=== PATIENT | female | born 1950 | race Caucasian/White ===

== ENCOUNTER 2021-08-19 17:23 | Inpatient (IN) | payer MEDICARE, BC ==
[~2021-08-19] VITALS: Ht 167.6 cm; Wt 64.4 kg
[~2021-08-19 17:23] MED LIST: AMLO10TA4 PO; ESTR1TAB28 PO; FERR325T28 PO; FURO40TA5 PO; LEVO150T PO
--- NOTE | 2021-08-19 17:35 | NUR ---
STEPHANIE CLEMONS (BOYFRIEND) [phone]
--- NOTE | 2021-08-19 17:40 | NUR ---
[facility] 71[facility]ited pt awke and alert fallow skin warm and dry to touch
[2021-08-19] MEDS ORDERED: IV NS 0.9% 1,000 ML BAG IV ONE (18:00)
--- NOTE | 2021-08-19 18:00 | NUR ---
COVID ANTIGEN SWAB DONE AND SENT TO THE LAB
[2021-08-19 18:02] LABS: BASOPHILS % (AUTO) 0.1 % (0.0-2.0); EOSINOPHILS % (AUTO) 1.6 % (0.0-6.0); HEMATOCRIT 33 % (33-45); HEMOGLOBIN 10.6 g/dL (11.5-14.8); LYMPHOCYTES # (AUTO) 0.8 K/uL (0.8-4.8); LYMPHOCYTES % (AUTO) 6.5 % (20.0-44.0); MEAN CORPUSCULAR HGB CONC 32 g/dl (31.0-36.0); MEAN CORPUSCULAR VOLUME 93 fL (82-100); MONOCYTES # (AUTO) 0.6 K/uL (0.1-1.30); MONOCYTES % (AUTO) 4.8 % (2.0-12.0); NEUTROPHILS # (AUTO) 10.6 K/uL (1.8-8.9); PLATELET COUNT (AUTO) 481 K/uL (150-450); RED BLOOD CELL COUNT(AUTO) 3.51 MIL/uL (4.0-5.2); WHITE BLOOD COUNT (AUTO) 12.2 K/uL (4.3-11.0)
[2021-08-19] MEDS ORDERED: LISI10TA29 PO (18:10)
[2021-08-19] MEDS ORDERED: LEVO200T8 PO (18:10)
--- NOTE | 2021-08-19 18:10 | NUR ---
MOVE SHEET SUBMITTED AND CALLED FOR TELE BED.
[2021-08-19] MEDS ORDERED: GABA300C PO (18:13)
--- NOTE | 2021-08-19 18:28 | NUR ---
ivf infused and patent HOB elevated no pain vs stable
[2021-08-19 18:43] LABS: CARBON DIOXIDE 26 mmol/L (21-32); CHLORIDE 101 mmol/L (98-107); GLUCOSE 194 mg/dL (74-106); SODIUM SERUM 139 mmol/L (136-145); UREA NITROGEN, BLOOD 7 mg/dL (7-18)
[2021-08-19 18:47] LABS: CALCIUM, SERUM 8.9 mg/dL (8.5-10.1)
[2021-08-19 18:52] LABS: POTASSIUM 2.2 mmol/L (3.5-5.1)
--- NOTE | 2021-08-19 19:23 | NUR ---
HAND OFF DAVE RN
[2021-08-19] MEDS ORDERED: ASPIRIN 81 MG TAB.CHEW PO ONE (19:30)
[2021-08-19] MEDS: POTASSIUM CL. PREMIX PERIPHER. 50 ML IV SCH ×2 (19:30→20:43)
[2021-08-19] MEDS ORDERED: POTASSIUM CHLORIDE 20 MEQ TAB.PRT.SR PO ONE ×2 (19:30→20:32)
--- NOTE | 2021-08-19 19:49 | NUR ---
URINE COLLECTED AND SENT TO LAB
[2021-08-19] MEDS ORDERED: Z GUARD REMEDY 4 OZ OINT TP PRN (20:00)
[2021-08-19] MEDS ORDERED: MORPHINE SULFATE INJ 2 MG/ML DISP.SYRIN IV PRN (20:00)
[2021-08-19] MEDS ORDERED: IV NS 0.9% 1,000 ML IV PRN (20:00)
[2021-08-19] MEDS ORDERED: ACETAMINOPHEN 325 MG TABLET PO PRN (20:00)
[2021-08-19] MEDS ORDERED: ONDANSETRON HCL/PF 4 MG/2 ML VIAL IVP PRN (20:00)
[2021-08-19] MEDS ORDERED: MAG HYDROX/AL HYDROX/SIMETH 30 ML UDC PO PRN (20:00)
[2021-08-19] MEDS ORDERED: MAGNESIUM HYDROXIDE 30 ML UDC PO PRN (20:00)
[2021-08-19] MEDS ORDERED: HYDROCODONE/APAP 5/325MG TABLET PO PRN (20:00)
[2021-08-19 20:05] LABS: BILIRUBIN,URINE NEGATIVE (NEGATIVE); COLOR,URINE YELLOW (YELLOW); LEUKOCYTE ESTERASE ,URINE LARGE (NEGATIVE); NITRITE, URINE NEGATIVE (NEGATIVE); PH,URINE 6.5 (5.0-8.0); PROTEIN,URINE 30 mg/dl (NEGATIVE); UGLUCOSE NEGATIVE (NEGATIVE); UROBILINOGEN,URINE 0.2 EU/dL (0.2)
[2021-08-19 20:12] LABS: BACTERIA,URINE 3+ /HPF (None Seen); WBC,URINE 81-100 /HPF (0-3)
[2021-08-19] MEDS ORDERED: CEFTRIAXONE 1 G in IV D5W 50 ML IV STA (20:25)
[2021-08-19] MEDS ORDERED: CEFTRIAXONE 1GM BAG (ER ONLY) 50 ML IV ONE (20:31)
[2021-08-19] MEDS ORDERED: ASPIRIN 81 MG TAB.CHEW ONE (20:32)
[2021-08-19] MEDS ORDERED: POTASSIUM CL. PREMIX PERIPHER. 100 ML ONE (20:32)
--- NOTE | 2021-08-19 20:39 | NUR ---
REPORT GIVEN TO ELIZABETH MCGINNIS
--- NOTE | 2021-08-19 21:09 | NUR ---
TRPONIN REPORTED AT 193
--- NOTE | 2021-08-19 21:30 | NUR ---
PT TRANSFERRED UNDER ACLS
[2021-08-19] MEDS: ENOXAPARIN SODIUM 40 MG/0.4 ML DISP.SYRIN SQ SCH (21:48)
[2021-08-19] MEDS: Magnesium 1GM/D5W 100ML PREMIX 100 ML IV SCH ×2 (21:50→22:50)
[2021-08-19] MEDS: TEMAZEPAM 15 MG CAPSULE PO PRN (22:10)
--- NOTE | 2021-08-19 22:10 | NUR ---
RN NOTE RECEIVED A 71 YEAR OLD FEMALE FROM ER AT 2140. PATIENT WAS ACCOMPANIED BY MAINTENANCE PERSON AND RN, DAVE. PATIENT AMBULATED FROM GURNEY TO BED. PATIENT IS ALERT AND ORIENTED X4. ABLE TO MAKE NEEDS KNOWN. BREATHING EVEN AND UNLABORED. TOLERATING ROOM AIR WELL. DENIES FEELING SHORTNESS OF BREATH. ON TELE MONITORING. DENIES CHEST PAIN. SKIN WARM AND DRY. NOTED WITH LEFT UPPER CHEST PACEMAKER. RIGHT AC 20G, PERIPHERAL IV, NO INFILTRATION WAS INFUSING POTASSIUM. REFUSED UPPER BODY SKIN ASSESSMENT AT THIS TIME. LOWER LEG ASSESSMENT DONE, PHOTOS FILED IN CHART. REFUSED BLOOD PRESSURE AT THIS TIME. EXPLAINED THE PURPOSE 3X, REFUSED CUFF INFLATION WAS PAINFUL ON LEFT ARM. ABLE TO ACTIVELY MOVE LEFT ARM WITH NO PAIN. WILL ATTEMPT AT LATER TIME. NO BLEEDING AT THIS TIME. BED LOW, IN LOCKED POSITION, CALL LIGHT WITHIN REACH.
[2021-08-20] VITALS: BP 122/49
[2021-08-20 04:00] VITALS: BP 107/72
--- NOTE | 2021-08-20 06:26 | NUR ---
RN NOTE NO SIGNIFICANT CHANGES. PATIENT SLEPT WELL. ALL DUE MEDICATIONS GIVEN. DENIES CHEST PAIN. DENIES FEELINGS OF SYNCOPE. BEDREST. VERBALIZES ABILITY TO CONTROL BOTH BOWEL AND BLADDER. DENIES NEEDING TO USE THE RESTROOM SINCE ADMISSION. IV 20G ON RIGHT AC INTACT, NO INFILTRATION, CURRENTLY INFUSING NS AT 75 CC/HR. ALL NEEDS ATTENDED, BED LOW, IN LOCKED POSITION, CALL LIGHT WITHIN REACH.
[2021-08-20 07:18] LABS: BASOPHILS % (AUTO) 0.5 % (0.0-2.0); EOSINOPHILS % (AUTO) 1.9 % (0.0-6.0); HEMATOCRIT 25 % (33-45); HEMOGLOBIN 8.5 g/dL (11.5-14.8); LYMPHOCYTES # (AUTO) 2.1 K/uL (0.8-4.8); LYMPHOCYTES % (AUTO) 24.7 % (20.0-44.0); MEAN CORPUSCULAR HGB CONC 34 g/dl (31.0-36.0); MEAN CORPUSCULAR VOLUME 93 fL (82-100); MONOCYTES # (AUTO) 1.5 K/uL (0.1-1.30); MONOCYTES % (AUTO) 18.1 % (2.0-12.0); NEUTROPHILS # (AUTO) 4.7 K/uL (1.8-8.9); NEUTROPHILS % (AUTO) 54.8 % (43.0-81.0); PLATELET COUNT (AUTO) 346 K/uL (150-450); RED BLOOD CELL COUNT(AUTO) 2.73 MIL/uL (4.0-5.2); WHITE BLOOD COUNT (AUTO) 8.6 K/uL (4.3-11.0)
--- NOTE | 2021-08-20 07:30 | NUR ---
RN OPENING NOTE RECEIVED PATIENT IN BED AWAKE, ALERT/ORIENTEDX4 AND VERBALLY RESPONSIVE. ON ROOM AIR TOLERATING WELL WITH SATURATION OF 95%. BREATHING EVEN AND UNLABORED. NO SOB OR ANY ACUTE DISTRESS NOTED AT THE TIME. NOTED WITH LEFT UPPER CHEST PACEMAKER. RIGHT AC 20G, INFUSING NS @75ML/HR, TOLERATING WELL. NO SIGNS OF INFILTRATION NOTED ON SITE. ALL SAFETY MEASURES IMPLEMENTED. BED LOCKED AND IN LOWEST POSITION WITH SIDE RAILS UP X 2 AND CALL LIGHT WITHIN REACH. WILL CONTINUE TO MONITOR PATIENT ACCORDINGLY THROUGHOUT SHIFT.
[2021-08-20 07:51] LABS: CALCIUM, SERUM 8.2 mg/dL (8.5-10.1); CARBON DIOXIDE 25 mmol/L (21-32); CHLORIDE 106 mmol/L (98-107); CREATININE 0.8 mg/dL (0.6-1.3); GLUCOSE 96 mg/dL (74-106); MAGNESIUM 2.1 mg/dL (1.8-2.4); PHOSPHORUS 3.5 mg/dL (2.5-4.9); SODIUM SERUM 140 mmol/L (136-145); UREA NITROGEN, BLOOD 8 mg/dL (7-18)
[2021-08-20 08:00] VITALS: BP 129/67
[2021-08-20 08:02] LABS: POTASSIUM 1.8 mmol/L (3.5-5.1)
--- NOTE | 2021-08-20 08:09 | NUR ---
k level is 1.8 was notified and orders obtained
[2021-08-20 08:19] LABS: THYROID STIMULATING HORMONE < 0.007 uIU/mL (0.358-3.74)
[2021-08-20] MEDS: PANTOPRAZOLE 40 MG TABLET.DR PO SCH (08:25)
[2021-08-20] MEDS: ASPIRIN 81 MG TAB.CHEW PO SCH (08:25)
[2021-08-20] MEDS ORDERED: POTASSIUM CHLORIDE 20 MEQ TAB.PRT.SR PO ONE (09:00)
[2021-08-20] MEDS: POTASSIUM CL. PREMIX PERIPHER. 50 ML IV SCH ×6 (09:25→14:29)
[2021-08-20 12:00] VITALS: BP 119/96
[2021-08-20] MEDS ORDERED: Potassium Chloride 20 MEQ in IV NS 0.9% 1,000 ML IV ONE (12:00)
[2021-08-20 12:19] LABS: EOSINOPHILS % (MANUAL) 1 % (0-4); LYMPHOCYTES % (MANUAL) 28 % (16-48); MONOCYTES % (MANUAL) 12 % (0-11.0); NEUTROPHILS % (MANUAL) 59 (42-76)
[2021-08-20 16:00] VITALS: BP 98/63
[2021-08-20] MEDS: MUPIROCIN OINT 2% 22 GM TUBE NS SCH ×2 (17:35→21:38)
--- NOTE | 2021-08-20 18:45 | NUR ---
RN CLOSING NOTE NO SIGNIFICANT CHANGES ON PATIENT THROUGHOUT SHIFT. PATIENT IN BED AWAKE, ALERT/ORIENTEDX4 AND VERBALLY RESPONSIVE, WITH FAMILY AT BEDSIDE. ON ROOM AIR TOLERATING WELL WITH SATURATION OF 100%. BREATHING EVEN AND UNLABORED. NO SOB OR ANY ACUTE DISTRESS NOTED AT THE TIME. RIGHT AC 20G, INFUSING KCL @75ML/HR, TOLERATING WELL. NO SIGNS OF INFILTRATION NOTED ON SITE. ALL DUE MEDS GIVEN ORDERED. KEPT PATIENT CLEAN DRY AND COMFORTABLE. ALL NEEDS ATTENDED. ALL SAFETY MEASURES IMPLEMENTED. BED LOCKED AND IN LOWEST POSITION WITH SIDE RAILS UP X 2 AND CALL LIGHT WITHIN REACH. WILL ENDORSE TO ONCOMING NURSE FOR CONTINUITY OF CARE.
[2021-08-20 19:06] LABS: CALCIUM, SERUM 8.1 mg/dL (8.5-10.1); CREATININE 0.9 mg/dL (0.6-1.3); POTASSIUM 3.1 mmol/L (3.5-5.1)
--- NOTE | 2021-08-20 19:10 | NUR ---
RN NOTES RECEIVED REPORT FROM MORNING RN PATIENT IN BED A/O X3-4 ABLE TO MAKE NEEDS KNOWN NO SOB NO DISTRESS NO CHEST PAIN NOTED AT THIS TIME, @ BEDSIDE. WITH IV ACCESS AT R AC # 20 PATENT FLUSHES WELL. WITH ONGOING IVF KCL@75CC/HR TOLERATING WELL. ALL SAFETY MEASURES IN PLACE AT ALL TIMES. HOB ELEVATED. CALL LIGHT WITHIN REACH. BED ON LOWEST POSITION AND LOCKED. WILL CLOSELY MONITOR THE PATIENT
[2021-08-20 20:00] VITALS: BP 118/76
[2021-08-20] MEDS: ENOXAPARIN SODIUM 40 MG/0.4 ML DISP.SYRIN SQ SCH (21:37)
[2021-08-20] MEDS: TEMAZEPAM 15 MG CAPSULE PO PRN (21:42)
[2021-08-21] VITALS: BP 104/52
[2021-08-21 04:00] VITALS: BP 137/60
--- NOTE | 2021-08-21 06:52 | NUR ---
RN NOTES NO SIGNIFICANT CHANGES ON PATIENT THROUGHOUT SHIFT. PATIENT IN BED AWAKE, ALERT/ORIENTEDX4 AND VERBALLY RESPONSIVE, ON ROOM AIR TOLERATING WELL WITH SATURATION OF 100%. BREATHING EVEN AND UNLABORED. NO SOB OR ANY ACUTE DISTRESS NOTED AT THE TIME. RIGHT AC 20G PATENT FLUSHES WELL NO SIGNS OF INFILTRATION NOTED ON SITE. ALL DUE MEDS GIVEN ORDERED. KEPT PATIENT CLEAN DRY AND COMFORTABLE. ALL NEEDS ATTENDED. ALL SAFETY MEASURES IMPLEMENTED. BED LOCKED AND IN LOWEST POSITION WITH SIDE RAILS UP X 2 AND CALL LIGHT WITHIN REACH. WILL ENDORSE TO ONCOMING NURSE FOR CONTINUITY OF CARE.
[2021-08-21 07:39] LABS: BASOPHILS % (AUTO) 0.6 % (0.0-2.0); HEMATOCRIT 25 % (33-45); LYMPHOCYTES # (AUTO) 1.7 K/uL (0.8-4.8); LYMPHOCYTES % (AUTO) 22.5 % (20.0-44.0); MEAN CORPUSCULAR HGB CONC 32 g/dl (31.0-36.0); MEAN CORPUSCULAR VOLUME 95 fL (82-100); MONOCYTES # (AUTO) 1.2 K/uL (0.1-1.30); NEUTROPHILS # (AUTO) 4.6 K/uL (1.8-8.9); NEUTROPHILS % (AUTO) 58.9 % (43.0-81.0); PLATELET COUNT (AUTO) 328 K/uL (150-450); RED BLOOD CELL COUNT(AUTO) 2.65 MIL/uL (4.0-5.2); WHITE BLOOD COUNT (AUTO) 7.7 K/uL (4.3-11.0)
[2021-08-21] MEDS: PANTOPRAZOLE 40 MG TABLET.DR PO SCH (07:48)
[2021-08-21 08:00] VITALS: BP 144/82
[2021-08-21 08:32] LABS: CALCIUM, SERUM 8.1 mg/dL (8.5-10.1); CREATININE 0.7 mg/dL (0.6-1.3); MAGNESIUM 1.8 mg/dL (1.8-2.4); PHOSPHORUS 2.9 mg/dL (2.5-4.9)
[2021-08-21 08:35] LABS: POTASSIUM 2.6 mmol/L (3.5-5.1)
--- NOTE | 2021-08-21 08:56 | NUR ---
RN NOTES: LAB CALLED AND REPORTED POTASSIUN 2.6, CALL Sherman Ramon WITH ORDER OF kcl 60 mEq PO X 1,
[2021-08-21] MEDS: ASPIRIN 81 MG TAB.CHEW PO SCH (09:36)
[2021-08-21] MEDS: MUPIROCIN OINT 2% 22 GM TUBE NS SCH ×2 (09:37→21:36)
[2021-08-21] MEDS ORDERED: POTASSIUM CHLORIDE 20 MEQ TAB.PRT.SR PO ONE (10:00)
--- NOTE | 2021-08-21 10:49 | NUR ---
RN NOTESl: NOTED PT IS HAVING DIFFICULTY SWALLOWING BRAXTON CAKE ASKED IF SHE IS OK CAN NOT ANSWER, ASKED IF SHE IS CHOCKING MOVED HER HEAD YES, DOES NOT NEED HELP AT THIS TIME, WAS ABLE TO DRINK WATER, REMOVED BREAKFAST TRAY CALLED MD WITH ORDER OF SWALLOW EVAL, CHANGE DIET TO PUREE DIET.;
[2021-08-21] MEDS: Potassium Chloride 40 MEQ in IV NS 0.9% 1,000 ML IV SCH (11:32)
--- NOTE | 2021-08-21 11:38 | NUR ---
WOUND CARE CONSULT: PT AGREED TO HAVE SKIN ASSESSMENT BUT BECAME AGITATED DURING ASSESSMENT AND WAS VERY IRRITABLE. PT NOTED TO HAVE SPOTTY RASH TO TRUNK OF BODY, UNKNOWN ETIOLOGY. DEFER TO PMD FOR RASH. PT ALSO NOTED TO HAVE DRY ESCHARS/SCABS TO LEFT LOWER LEG AND ANKLE AREA WELL VERY LONG, CURLING TOENAILS. DPM CONSULT CALLED TO DR DORANTES. PT IS INCONTINENT OF LOOSE STOOL. RECOMMENDATIONS MADE FOR SKIN PROTECTION. DISCUSSED WITH NURSING STAFF. MD IN AGREEMENT WITH PLAN OF CARE.
[2021-08-21 12:00] VITALS: BP 143/70
[2021-08-21] MEDS: METHIMAZOLE (5MG) 5 MG TABLET PO SCH (15:14)
[2021-08-21 16:00] VITALS: BP 140/90
--- NOTE | 2021-08-21 16:13 | NUR ---
SS Note: SS received consult for extremely long, curling toenails, and dry wounds on leg. Pt. Is a 71-year-old female who demonstrates adequate insight to the reason for hospitalization. Per pt., she presents to the hospital for a syncopal event. Pt. was oriented x3, alert, and cooperative. During interview, pt. was capable of following directions and appeared unkempt. Pt.s speech was at a normal rate and pt.s mood was elevated. Pt. reported no hx of mental health, substance abuse, suicidal ideation, or homicidal ideation. Pt. denies auditory hallucinations, visual hallucinations, paranoia, or delusions. SW explored pt.s living situation. Per pt., she resides at her place with her friend [Javan Christianson and his son]. Pt. stated that Javan is helpful as needed. Pt. stated that she can take care of herself, but her fingernails are long and yellow. SW asked pt. regarding fall in bathtub. Per pt., she was showering and fell backwards because it was slippery. Her friend Javan helped her up since he was right beside her. Pt. stated that she was fine but per wound consult, pt. noted to have spotty rash to trunk of body. Pt. also noted that to have dry eschars/scabs to left lower leg and ankle area. Plan: SW made an APS report due to self-neglect. APS Intake #[id number] Resources Provided: ABUSE PREVENTION: ELDER ABUSE HOTLINE (08/11) ADULT PROTECTIVE SERVICES HOTLINE LONG-TERM CARE [facility] Region AREA ON AGING (HOTLINE) ADULT DAY HEALTH CARE CARE CENTERS: Private pay or Medi-moreno funded adult day care [place] Adult [facility] Care [facility] , [facility] , [facility] , [facility] Adult [facility] Health Care , [facility] Adult [facility] Health Care , [facility] Adult Daycare Center , [place] [facility] , [place] [facility] Adult Center , [place] ALZHEIMERS DISEASE/DEMENTIA: Alzheimers Association Helpline [facility] www.alz.org/[facility] Department of Aging www.lacity.org Family Caregiver Dora www.caregiver.org [place] Caregiver Resources Center/Family Support www.[facility].org CANCER RESOURCES: [place] Cancer Society www.cancer.org Cancer Support Community www.CancerSupportVvsb.org: CancerCare www.cancercare.org [facility] Cancer Support [place] www.[facility].org [facility] HEALTH ASSOCIATIONS: AARP www.aarp.org ALS Association (ask for Jelly) www.als.org [place] Diabetes Association www.diabetes.org [place] Heart Association www.heart.org [place] Lung Association www.lungusa.org [place] Parkinson Disease Association www.apdaparkinson.org [place] , www.redcross.org Arthritis Foundation www.arthritis.org Crohns & Colitis Foundation of [place] www.ccfa.org/chapters/deborah National Multiple Sclerosis Society www.nationalmssociety.org Myasthenia Gravis Foundation www.myasthenia-ca.org National Stroke Association www.stroke.org CONSERVATORSHIP & GUARDIANSHIP: AARP Lety Solitario Legal Services Center for Health Care Rights Eldercare Information and Referral Collection Clerk Foundation [facility] Hospital: [facility] Hospital Bar Referral Service [facility] Legal Services Office of the Public Guardian [place] EYESIGHT DISORDER RESOURCES: [place] Macular Degeneration Foundation [facility] www.[facility].org GRIEF AND BEREAVEMENT RESOURCES: The [place] , [facility] THE MILNER Connection , [facility] Bereavement Center , [place] HEARING DISORDER RESOURCES: [place] Telephone Access Program Deaf and Disabled Telecommunications Program www.ddtp.[facility].ca.gov HearRx Hearing Centers ([place]) Better Hearing Systems , [place] GLAD ([facility] Agency on Deafness) V/ TTY; Flight Follower , [facility] Hearing [facility] -low income hearing aid assistance www.university of miami hospitalfoundation.org [place] [facility] , [place] HELP AT HOME CAREGIVER SUPPORT: In Home Support Services (Must have Medi-Moreno to be eligible) *Ask for a list of agencies that provide services to assist with care in the home. Local Senior Centers also have listings of care providers. HOME SAFETY MODIFICATIONS AND EQUIPMENT: Senior centers have additional referrals. [place] Housing and Community Investment Dept. Handyworker Program (low income) or Visit http://hcidla.[facility].org/yca-qskiha-te for more information National Seating and Mobility and/or ; Forever Active www.foreveractivemed.SKKY, Inc. Stay Home Safe www.Stayhomesafe.SKKY, Inc. LIFE ALERT RESPONSE SYSTEM: iGo Lifeline Services 410-968-7855 www. LawbitDocs Life Alert 536-308-1544 www.Vibrant Energy.SKKY, Inc. Life Station 185-760-4796 www.BoomBangation.SKKY, Inc. Safe Return 369-817-2979 www.alz.or/safereturn Cell Phones for Seniors www.HotPads MEALS AND FOOD PROGRAMS: Blank Meals on Wheels [phone] [place] Meals on Wheels [phone] [facility] [phone] [place] to the Homebound [phone] [place] to the Homebound [phone] [facility] to the Homebound [phone] [facility] to the Homebound [phone] [facility] [phone] [facility] [phone] ONE Generation [phone] [facility] [phone] [facility] [phone] Meals on Wheels [phone] For all ages: $6.85/ meal w side. Delivered M-F from 10 am-1pm. Application and payment is done over the phone. Frozen meals available for weekends. Emergency Food [facility] [phone] [facility] Bodybuilder [phone] [facility] [phone] [facility]- Brown bag lunches [phone] [facility] [phone] MEAL/GROCERY DELIVERY PROGRAMS: Chris Senior Gourmet Meals [phone]- [facility] [phone]- [facility] Magic Kitchen [phone] Moms Meals [phone] (ask [place] for Discount Select grocery stores may provide delivery. MEDICAL INSURANCE SUPPORT SERVICES: Center for Health Care Rights [phone] Health Insurance Counseling/Advocacy Programs (HICAP)-Must have Medicare. Offers counseling for Medi-Moreno eligibility [phone] Department of Public Bodybuilder [phone] www.[facility].ca.gov Medicare 401-995-6647 www.socialsecurity.org Social Security [phone] SENIOR ACTIVITY PROGRAMS: *Contact a local senior center, adult school, recreation facility or community [facility] for education, fitness, recreation, and social programs. Aquatic Therapy and Adapted Exercise programs through [facility] [phone] Encore at [facility] [phone] www.[facility]/encore U- Senior Friends [phone] [place] Senior Programs 110-643-7301 www.oasisnet.org Suddenly 65 www.Human Demand.SKKY, Inc. SENIOR CENTERS: [facility] [phone] [facility] [phone] [facility] [phone] [facility] [phone] [facility] [phone] [facility] [phone] [facility] [phone] [facility] [phone] [facility] [phone] [facility] [phone] [facility] [phone] [facility] [phone] [facility] [phone] TRANSPORTATION: Local [facility] may have applications for transportation programs and additional resources. ACCESS Services [phone] Transportation for seniors and disabled persons 7 days a week requiring 254 hr. advance reservation. Must apply and register for program melissa eligible. CITY RIDE 430-826-0717 or [phone] Transportation for seniors and persons with ADA card/metro disabled card in the [facility]. M-F only. Must register for services. ONE GENERATION [phone] Serves 65 years + in conjunction with city ride program. Must be registered with both programs. A to B Transport [phone] Provides wheelchair/gurney van service. Adult Medical Transport [phone] Accepts [facility] with prior authorization. Care Van [phone] Provides wheelchair Transport. [facility] Wide Transportation [phone] Provides gurney service Gentle Care [phone] Gurney Transport. All Town Transportation [phone] wheelchair & gurney transport D Transportation [phone] wheelchair & gurney transport [place] Non-Emergency Transport [phone] wheelchair & gurney transport Independent Living Center [phone] Short Term Transportation primarily for adults with disabilities on social security income. Nominal fee may apply and a reservation is required. [facility] Cab [phone] or [phone] [place] TappTimei [phone] [place] [address] Services -[phone] For additional programs & services VETERANS RESOURCES: Submissions for Aid and Attendance should be done directly to Federal VA office locatd at : [address] [facility] [phone] National Caregiver Support Line [phone] [place] Field Office [phone] [place] Department of Affairs [phone] Pension Information [phone]
--- NOTE | 2021-08-21 18:00 | NUR ---
RN NOTES: PT PULLED HER IV FLUID SAYING I DO NOT WANT IT EXPLAINED RISK AND BENEFITS STILL REFUSING TO INSERT A NEW LINE, CALL JUAN PABLO BEE AND NOTIFIED HIM
--- NOTE | 2021-08-21 19:37 | NUR ---
RN NOTES: PT IN BED AWAKE ALERT X 3 , RESPIRATION IS EVEN AND UNLABORED ON ROOM AIR, DENIED ANY PAIN OR DISCOMFORT,KEPT CLEAN AND DRY, ALL DUE MEDS ARE GIVEN ORDERED, CALL LIGHT WITHIN REACH AT ALL TIMES, BED KEPT IN LOW AND LOCKED POSITION, ENDORSE TO MARYLU JACQUES RN FOR CONTINUITY OF CARE
--- NOTE | 2021-08-21 20:00 | NUR ---
RECEIVED PATIENT IN BED, ALERT/ORIENTED X3, ROOM AIR, NO COMPLAIN OF PAIN, VERY ANXIOUS, EXCITABLE, REFUSING TO HAVE IV LINE , EXPLAINED TO PATIENT POTASSIUM LEVEL IS LOW, NEEDS TO BE REPLACED VIA IV. AGREED FOR PERIPHERAL IV. GENERALIZED WEAKNESS, BEDREST, INCONTINENT OF URINE, KEPT SAFE, WILL CONTINUE TO MONITOR.
[2021-08-21 20:50] VITALS: BP 171/84
[2021-08-21] MEDS: LORAZEPAM INJ 2 MG/ML VIAL IV PRN (21:27)
[2021-08-21] MEDS: CEPHALEXIN MONOHYDRATE 500 MG CAPSULE PO SCH (21:27)
[2021-08-21] MEDS: ENOXAPARIN SODIUM 40 MG/0.4 ML DISP.SYRIN SQ SCH (21:28)
[2021-08-22] VITALS (8 sets, daily range): BP systolic 146–197; BP diastolic 65–94
--- NOTE | 2021-08-22 01:01 | NUR ---
BP 181/73, HR 83, NOTIFIED RISK MODELER LENIN, NO NEW ORDER.
[2021-08-22] MEDS: Potassium Chloride 40 MEQ in IV NS 0.9% 1,000 ML IV SCH ×2 (01:14→14:18)
--- NOTE | 2021-08-22 05:45 | NUR ---
REPORTED TO ROMEO PHELPS, BP 160/87, NO NEW ORDER
--- NOTE | 2021-08-22 06:33 | NUR ---
SYNCOPE AND HYPOKALEMIA, ALERT/ORIENTED X3, VERY ANXIOUS, STABLE ON ROOM AIR, POTASSIUM 2.6 REPLACED BY KDUR 60 MEQ 08/21/21, ON NS + KCL 40 MEQ AT 75 ML/HR, BMP, CBC IN AM, UA POSITIVE ECOLI, NEW ORDER OF KEFLEX PO. ASPIRATION PRECAUTION, CRUSHED MEDS WITH APPLE SAUCE, PUREED DIET.
--- NOTE | 2021-08-22 07:30 | NUR ---
ENGINE INSPECTOR AM NOTES: PT IN BED AWAKE ALERT X 3 , ON 2L O2 NASAL CANULA O2 SAT 97%, PT REMOVES CANULA. PREFERS ROOM AIR AT THIS TIME. NO SOB, NO DISTRESS, RESPIRATION UNLABORED. SR, PAC, PVC HR 85 ON MONITOR. DENIES PAIN AT THIS TIME. NS + KCL 40 MEQS INFUSING AT 75 ML/HR ON LEFT HAND G24, SITE CLEAR. BEDREST, SEE NURSING FLOWSHEET FOR SKIN ISSUES. ON DIAPERS, POC DISCUSSE, VERBALIZED UNDERSTANDING. BED LOW LOCKED, SAFETY MEASURES IN PLACE, SR UP X2, CALL LIGHT WITHIN REACH. WILL CONT TO MONITOR.
[2021-08-22] MEDS: PANTOPRAZOLE 40 MG TABLET.DR PO SCH (07:57)
[2021-08-22] MEDS: ASPIRIN 81 MG TAB.CHEW PO SCH (08:16)
[2021-08-22] MEDS: CEPHALEXIN MONOHYDRATE 500 MG CAPSULE PO SCH ×2 (08:16→21:17)
[2021-08-22] MEDS: METHIMAZOLE (5MG) 5 MG TABLET PO SCH (08:16)
[2021-08-22] MEDS: MUPIROCIN OINT 2% 22 GM TUBE NS SCH ×2 (08:17→21:24)
--- NOTE | 2021-08-22 09:30 | NUR ---
RN NOTE DUE MEDS GIVEN
--- NOTE | 2021-08-22 09:41 | NUR ---
RN NOTES DR. ARLETTE ALMEIDA NOTIFIED OF BP 175/94 AND THAT PT HAS NO BP MEDS. MEDICATION NEEDS TO BE RECONCILED.
[2021-08-22 10:58] LABS: BASOPHILS % (AUTO) 0.6 % (0.0-2.0); EOSINOPHILS % (AUTO) 3.3 % (0.0-6.0); HEMATOCRIT 26 % (33-45); HEMOGLOBIN 8.1 g/dL (11.5-14.8); LYMPHOCYTES # (AUTO) 1.3 K/uL (0.8-4.8); LYMPHOCYTES % (AUTO) 17.7 % (20.0-44.0); MEAN CORPUSCULAR HGB CONC 32 g/dl (31.0-36.0); MEAN CORPUSCULAR VOLUME 96 fL (82-100); MONOCYTES # (AUTO) 0.9 K/uL (0.1-1.30); MONOCYTES % (AUTO) 12.1 % (2.0-12.0); NEUTROPHILS # (AUTO) 4.9 K/uL (1.8-8.9); NEUTROPHILS % (AUTO) 66.3 % (43.0-81.0); PLATELET COUNT (AUTO) 345 K/uL (150-450); RED BLOOD CELL COUNT(AUTO) 2.66 MIL/uL (4.0-5.2); WHITE BLOOD COUNT (AUTO) 7.4 K/uL (4.3-11.0)
[2021-08-22 11:05] LABS: CALCIUM, SERUM 7.9 mg/dL (8.5-10.1); CREATININE 0.7 mg/dL (0.6-1.3); MAGNESIUM 1.5 mg/dL (1.8-2.4); PHOSPHORUS 2.9 mg/dL (2.5-4.9); POTASSIUM 3.8 mmol/L (3.5-5.1)
--- NOTE | 2021-08-22 11:16 | NUR ---
RN NOTES CALL PLACED AGAIN TO DR. ARLETTE ALMEIDA RE PT'S BP 175/94. MEDICATION NEEDS RECONCILIATION. NO BP MEDICATION
--- NOTE | 2021-08-22 11:45 | NUR ---
RN NOTES PICC/MIDLINE NURSE AT BEDSIDE. MIDLINE INSERTION
--- NOTE | 2021-08-22 11:50 | NUR ---
RN NOTES ATTEMPTED TO GIVE PATIENT A ONE TIME NORVASC 5 MG BUT PATIENT BECAME CRANKY AND UPSET AND THREW A FIT. EXPLAINED TO HER THAT IT IS ONLY A ONE TIME MEDICATION, AND PER HER, SHE DOES NOT WANT TO BE DISTURBED WHILE EATING.
[2021-08-22] MEDS: AMLODIPINE BESYLATE 5 MG TABLET PO ONE ×2 (11:56→12:08)
--- NOTE | 2021-08-22 16:45 | NUR ---
RN NOTES PLACE A CALL TO DR. ARLETTE ALMEIDA RE PT'S BP 197/94. PT HAS NO BP MEDICATION
--- NOTE | 2021-08-22 17:00 | NUR ---
RN NOTES PATIENT STARTED ON NORVASC 10 MG DAILY. ATIVAN 0.5MG IV GIVEN FOR ANXIETY BP RECHECKED 146/86
[2021-08-22] MEDS: LORAZEPAM INJ 2 MG/ML VIAL IV PRN (17:06)
[2021-08-22] MEDS: AMLODIPINE BESYLATE 10 MG TABLET PO SCH (17:06)
[2021-08-22] MEDS ORDERED: CEPHALEXIN MONOHYDRATE 250 MG CAPSULE PO SCH (18:00)
--- NOTE | 2021-08-22 18:41 | NUR ---
RN CLOSING NOTES PATIENT RESTING COMFORTABLY, NOT IN ANY DISTRESS. ALL NEEDS MET AT THIS TIME. PM CARE DONE EARLIER. NO OTHER SIGNIFICANT CHANGE IN CONDITION. WILL ENDORSE TO NEXT SHIFT FOR SINA.
--- NOTE | 2021-08-22 19:45 | NUR ---
RN NOTE RECEIVED PT IN BED, AO3. NOT IN ANY DISTRESS, DENIES ANY PAIN. SR ON TELE MONITOR WITH PVC AND PAC. HR 87. JESSI ML PATENT AND INTACT, KCL IN NS RUNNING AT 75ML/HR. WILL CONTINUE TO MONITOR.
[2021-08-22] MEDS: ENOXAPARIN SODIUM 40 MG/0.4 ML DISP.SYRIN SQ SCH (21:18)
[2021-08-23] VITALS: BP 153/77
[2021-08-23] MEDS: Potassium Chloride 40 MEQ in IV NS 0.9% 1,000 ML IV SCH ×2 (03:39→16:24)
[2021-08-23 04:00] VITALS: BP 137/90
[2021-08-23 06:32] LABS: BASOPHILS # (AUTO) 0.1 K/uL (0.0-0.2); BASOPHILS % (AUTO) 0.6 % (0.0-2.0); EOSINOPHILS % (AUTO) 2.6 % (0.0-6.0); HEMATOCRIT 25 % (33-45); HEMOGLOBIN 8.2 g/dL (11.5-14.8); LYMPHOCYTES # (AUTO) 1.5 K/uL (0.8-4.8); LYMPHOCYTES % (AUTO) 16.9 % (20.0-44.0); MEAN CORPUSCULAR HGB CONC 32 g/dl (31.0-36.0); MEAN CORPUSCULAR VOLUME 96 fL (82-100); MONOCYTES # (AUTO) 1.4 K/uL (0.1-1.30); MONOCYTES % (AUTO) 15.7 % (2.0-12.0); NEUTROPHILS # (AUTO) 5.7 K/uL (1.8-8.9); NEUTROPHILS % (AUTO) 64.2 % (43.0-81.0); PLATELET COUNT (AUTO) 331 K/uL (150-450); RED BLOOD CELL COUNT(AUTO) 2.66 MIL/uL (4.0-5.2); WHITE BLOOD COUNT (AUTO) 8.9 K/uL (4.3-11.0)
--- NOTE | 2021-08-23 06:50 | NUR ---
RN CLOSING NOTE PT IN BED, SLEEPING AROUSES EASILY. NOT IN ANY DISTRESS. TOLERATES ROOM AIR. DENIES ANY PAIN. SR ON TELE MONITOR WITH HR 77. CONTINUE ON IVFLUIDS NS WITH KCL AT 75ML/HR, NO S/SX OF INFILTRATION NOTED, JESSI ML REMAIN INTACT AND PATENT. WILL ENDORSE TO NEXT SHIFT NURSES FOR SINA.
[2021-08-23 06:53] LABS: CREATININE 0.8 mg/dL (0.6-1.3); MAGNESIUM 1.3 mg/dL (1.8-2.4); PHOSPHORUS 2.9 mg/dL (2.5-4.9); POTASSIUM 3.6 mmol/L (3.5-5.1)
--- NOTE | 2021-08-23 07:30 | NUR ---
DIRECTOR OF SAFETY AND SECURITY AM NOTES: PT IN BED AWAKE ALERT X 3 , ON ROOM AIR, O2 SAT 97%, PT REMOVES CANULA. NO SOB, NO DISTRESS, RESPIRATION UNLABORED. SR, PAC, PVC HR 81 ON MONITOR. DENIES PAIN AT THIS TIME. NS + KCL 40 MEQ INFUSING AT 75 ML/HR ON JESSI MIDLINE, LEFT HAND G24 FLUSHES WELL, BOTH SITES CLEAR, CDI DRESSINGS. BEDREST, SEE NURSING FLOWSHEET FOR SKIN ISSUES. ON DIAPERS, POC DISCUSSED, VERBALIZED UNDERSTANDING. BED LOW LOCKED, SAFETY MEASURES IN PLACE, SR UP X2, CALL LIGHT WITHIN REACH. WILL CONT TO MONITOR.
[2021-08-23] MEDS: PANTOPRAZOLE 40 MG TABLET.DR PO SCH (07:57)
[2021-08-23 08:00] VITALS: BP 174/97
[2021-08-23] MEDS: METHIMAZOLE (5MG) 5 MG TABLET PO SCH (08:44)
[2021-08-23] MEDS: ASPIRIN 81 MG TAB.CHEW PO SCH (08:44)
[2021-08-23] MEDS: CEPHALEXIN MONOHYDRATE 500 MG CAPSULE PO SCH ×2 (08:44→21:36)
[2021-08-23] MEDS: MUPIROCIN OINT 2% 22 GM TUBE NS SCH ×2 (08:45→21:38)
[2021-08-23] MEDS: AMLODIPINE BESYLATE 10 MG TABLET PO SCH (08:45)
--- NOTE | 2021-08-23 09:30 | NUR ---
RN NOTES DUE MEDS GIVEN
[2021-08-23] MEDS: Magnesium 1GM/D5W 100ML PREMIX 100 ML IV SCH ×4 (10:03→13:08)
[2021-08-23 10:09] LABS: LYMPHOCYTES % (MANUAL) 18 % (16-48); MONOCYTES % (MANUAL) 11 % (0-11.0); NEUTROPHILS % (MANUAL) 67 (42-76)
[2021-08-23 10:10] LABS: EOSINOPHILS % (MANUAL) 4 % (0-4)
[2021-08-23 12:00] VITALS: BP 155/65
[2021-08-23] MEDS: GABAPENTIN 300 MG CAPSULE PO SCH ×2 (12:21→16:21)
[2021-08-23 16:00] VITALS: BP 151/73
[2021-08-23 20:00] VITALS: BP 153/85
--- NOTE | 2021-08-23 20:16 | NUR ---
RN NOTE RECEIVED PT IN BED, AWAKE ALERT, WATCHING TV WITH PARTNER AT BEDSIDE. DENIES ANY PAIN OR SOB. ON TELE MONITOR SHOWS SR WITH PACS. ON IVFLUIDS OF NS WITH KCL AT 75ML/HR, INFUSING WELL. JESSI ML PATENT AND INTACT, COMPLAINED OF PAIN ON LHAND IV SITE, REMOVED LINE, NO S/SX OF INFECTION. WILL CONTINUE TO MONITOR.
[2021-08-23] MEDS: ENOXAPARIN SODIUM 40 MG/0.4 ML DISP.SYRIN SQ SCH (21:00)
--- NOTE | 2021-08-23 21:47 | NUR ---
RN NOTE PT REFUSED LOVENOX, EXPLAINED RISKS AND BENEFITS, PT VERBALIZES UNDERSTANDING.
[2021-08-24] VITALS: BP 132/92
[2021-08-24 04:00] VITALS: BP 159/73
[2021-08-24] MEDS: Potassium Chloride 40 MEQ in IV NS 0.9% 1,000 ML IV SCH (06:14)
--- NOTE | 2021-08-24 07:14 | NUR ---
RN NOTE PT IN BED, SLEEPING AROUSES EASILY. NOT IN ANY DISTRESS. TOLERATES ROOM AIR. DENIES ANY PAIN OR SOB. NO CHANGES IN LOC, REMAIN AFEBRILE. CONTINUE ON IVFLUIDS NS WITH KCL AT 75ML/HR, NO S/SX OF INFILTRATION NOTED, JESSI ML REMAIN INTACT AND PATENT. WILL ENDORSE TO NEXT SHIFT NURSE FOR SINA.
--- NOTE | 2021-08-24 07:25 | NUR ---
RN OPENING NOTES RECEIVED PATIENT IN BED AWAKE ALERT/ORIENTED X 3 , ON ROOM AIR, TOLERATING WELL. BREATHING EVEN AND UNLABORED. NO SIGNS OF ANY ACUTE DISTRESS NOTED AT THE TIME. IV ACCESS ON JESSI MIDLINE INFUSING NS + KCL 40 MEQ AT 75 ML/HR ON JESSI MIDLINE. ALL SAFETY MEASURES IN PLACE, BED LOW LOCKED, SAFETY MEASURES IN PLACE, SR UP X2, CALL LIGHT WITHIN REACH. ALL NEEDS ANTICIPATED AT THE TIME.
[2021-08-24 08:00] VITALS: BP 146/72
[2021-08-24] MEDS: ASPIRIN 81 MG TAB.CHEW PO SCH (08:31)
[2021-08-24] MEDS: METHIMAZOLE (5MG) 5 MG TABLET PO SCH (08:31)
[2021-08-24] MEDS: AMLODIPINE BESYLATE 10 MG TABLET PO SCH (08:31)
[2021-08-24] MEDS: GABAPENTIN 300 MG CAPSULE PO SCH ×3 (08:32→16:47)
[2021-08-24] MEDS: CEPHALEXIN MONOHYDRATE 500 MG CAPSULE PO SCH (08:32)
[2021-08-24] MEDS: PANTOPRAZOLE 40 MG TABLET.DR PO SCH (08:32)
[2021-08-24] MEDS: MUPIROCIN OINT 2% 22 GM TUBE NS SCH (08:33)
[2021-08-24] MEDS ORDERED: LISINOPRIL (10MG) 10 MG TABLET PO SCH (09:00)
[2021-08-24] MEDS ORDERED: METH5TAB70 PO (11:57)
[2021-08-24] MEDS ORDERED: ASPI-1169 PO (11:57)
[2021-08-24] MEDS ORDERED: AMLO-213 PO (11:57)
[2021-08-24] MEDS ORDERED: CEPH250C PO (11:57)
[2021-08-24 12:00] VITALS: BP 139/66
[2021-08-24 16:00] VITALS: BP 121/73
--- NOTE | 2021-08-24 18:23 | NUR ---
RN NOTE PATIENT DISCHARGED TO HOME, PATIENT BREATHING AND UNLABORED. NO SOB NOTED. NO ACUTE DISTRESS NOTED AT THE TIME. ALL DUE MEDS GIVEN ORDERED. KEPT PATIENT CLEAN DRY AND COMFORTABLE. ALL NEEDS ATTENDED. BELONGINGS GIVEN TO PATIENT, DISCHARGE INSTRUCTIONS SIGN AND GIVEN TO PATIENT. PATIENT AND SPOUSE AT BEDSIDE VERBALIZE UNDERSTANDING OF DISCHARGE INSTRUCTIONS. IV ACCESS REMOVED FROM JESSI, NO BLEEDING NOTED ON SITE. PATIENT WHEELED OUT OF HOSPITAL AND ASSISTED IN CAR. PATIENT LEFT HOSPITAL WITH SPOUSE IN STABLE CONDITION.
== END 2021-08-24 18:12 | disposition home or self-care (01) | DRG 73 ==
LOC: ER 17:25 → TELE1 20:18
PROVIDERS: ADMIT Nurse Practitioner Acute Care; ATTEND Nurse Practitioner Acute Care
PROC: 05H533Z Insertion of Infusion Device into Right Subclavian Vein, Percutaneous Approach (ICD-10-PCS; principal; 2021-08-22)
PROC: B546ZZA Ultrasonography of Right Subclavian Vein, Guidance (ICD-10-PCS; 2021-08-22)
DX: G90.8 Other disorders of autonomic nervous system (principal); I21.A1 Myocardial infarction type 2; N39.0 Urinary tract infection, site not specified; E86.0 Dehydration; B96.20 Unspecified Escherichia coli [E. coli] as the cause of diseases classified elsewhere; D63.8 Anemia in other chronic diseases classified elsewhere; E05.90 Thyrotoxicosis, unspecified without thyrotoxic crisis or storm; E87.6 Hypokalemia; I10 Essential (primary) hypertension; Z95.0 Presence of cardiac pacemaker; Z20.822 Contact with and (suspected) exposure to COVID-19
CPT/HCPCS: 36415; 71045-TC; 80048-TC; 81001; 83735-TC; 84100-TC; 84439-TC; 84443-TC; 84484-TC; 85025-TC; 85730-TC; 86850-TC; 87081-TC; 87086-TC; 87186-TC; 92526; 92611-TC; 93307-TC; 97116-TC; 97530-TC; C9803; G0378; J0696; J1650; J2060; J2270; J3475; J3480; J7030; J7050; J7060; J7120

== ENCOUNTER 2022-06-11 00:42 | Inpatient (IN) | payer MEDICARE, BC ==
[~2022-06-11] VITALS: Ht 157.5 cm; Wt 56.2 kg
[~2022-06-11 00:42] MED LIST changes: +AMLO-213 PO; -AMLO10TA4 PO; +ASPI-1169 PO; +CEPH250C PO; -ESTR1TAB28 PO; -FERR325T28 PO; -FURO40TA5 PO; +GABA300C PO; -LEVO150T PO; +LISI10TA29 PO; +METH5TAB70 PO
[2022-06-11] MEDS ORDERED: methylPREDNISolone SOD SUCC 125 MG/2ML VIAL ONE (00:54)
[2022-06-11] MEDS ORDERED: ALBUTEROL FS 2.5 MG/0.5 ML VIAL.NEB NEB ONE (01:00)
[2022-06-11] MEDS ORDERED: ACETAMINOPHEN 325 MG TABLET PO ONE (01:00)
[2022-06-11] MEDS ORDERED: methylPREDNISolone SOD SUCC 125 MG/2ML VIAL IV ONE (01:00)
[2022-06-11] MEDS ORDERED: ACETAMINOPHEN ES 500 MG TABLET ONE (01:13)
[2022-06-11] MEDS ORDERED: ALBUTEROL FS 2.5 MG/0.5 ML VIAL.NEB ONE (01:18)
[2022-06-11 01:25] LABS: CALCIUM, SERUM 9.4 mg/dL (8.5-10.1); CARBON DIOXIDE 19 mmol/L (21-32); CHLORIDE 102 mmol/L (98-107); CREATININE 1.2 mg/dL (0.6-1.3); GLUCOSE 152 mg/dL (74-106); POTASSIUM 3.3 mmol/L (3.5-5.1); SODIUM SERUM 134 mmol/L (136-145); UREA NITROGEN, BLOOD 13 mg/dL (7-18)
[2022-06-11 01:33] LABS: BASOPHILS % (AUTO) 0.2 % (0.0-2.0); EOSINOPHILS % (AUTO) 0.6 % (0.0-6.0); HEMATOCRIT 29 % (33-45); HEMOGLOBIN 8.9 g/dL (11.5-14.8); LYMPHOCYTES # (AUTO) 1.5 K/uL (0.8-4.8); LYMPHOCYTES % (AUTO) 9.3 % (20.0-44.0); MEAN CORPUSCULAR HGB CONC 31 g/dl (31.0-36.0); MEAN CORPUSCULAR VOLUME 89 fL (82-100); MONOCYTES # (AUTO) 1.4 K/uL (0.1-1.30); MONOCYTES % (AUTO) 8.6 % (2.0-12.0); NEUTROPHILS # (AUTO) 13.1 K/uL (1.8-8.9); NEUTROPHILS % (AUTO) 81.3 % (43.0-81.0); RED BLOOD CELL COUNT(AUTO) 3.21 MIL/uL (4.0-5.2); WHITE BLOOD COUNT (AUTO) 16.1 K/uL (4.3-11.0)
[2022-06-11 01:39] LABS: ALANINE AMINOTRANSFERASE 16 U/L (12-78); ALKALINE PHOSPHATASE 158 U/L (46-116); ASPARTATE AMINOTRANSFERASE 17 U/L (15-37); BILIRUBIN,DIRECT 0.4 mg/dL (0.0-0.2); BILIRUBIN,TOTAL 1.2 mg/dL (0.2-1.0); TOTAL PROTEIN, SERUM 7.4 g/dL (6.4-8.2)
[2022-06-11 01:41] LABS: PLATELET COUNT (AUTO) 940 K/uL (150-450)
[2022-06-11 02:09] LABS: BILIRUBIN,URINE 1+ (NEGATIVE); COLOR,URINE YELLOW (YELLOW); LEUKOCYTE ESTERASE ,URINE 3+ (NEGATIVE); NITRITE, URINE NEGATIVE (NEGATIVE); PH,URINE 7.5 (5.0-8.0); PROTEIN,URINE 2+ mg/dl (NEGATIVE); UGLUCOSE NEGATIVE (NEGATIVE); UROBILINOGEN,URINE 0.2 EU/dL (0.2)
[2022-06-11 02:19] LABS: ABG BASE EXCESS -5.4 mmol/L; ABG PCO2 14.8 mmHg (35.0-45.0); ABG PH 7.604 (7.350-7.450); ABG PO2 151.3 mmHg (75.0-100.0); COHb 0.3 % (0.5-1.5); MetHb 0.2 % (0.0-1.5); O2Hb 98.5 % (94.0-97.0); SITE, ABG Left Radial; VENT MODE, BG 10 L SM
[2022-06-11] MEDS ORDERED: ESCI10TA PO (02:19)
[2022-06-11] MEDS ORDERED: ERGO800011 PO (02:19)
[2022-06-11] MEDS ORDERED: FERR325T23 PO (02:19)
[2022-06-11] MEDS ORDERED: LEVO100T PO (02:19)
[2022-06-11] MEDS ORDERED: ASCO500C6 PO (02:19)
[2022-06-11] MEDS ORDERED: AMIN30LI2 PO (02:19)
[2022-06-11] MEDS ORDERED: MULT-213 PO (02:19)
[2022-06-11 02:23] LABS: BACTERIA,URINE Rare /HPF (None Seen); SQUAMOUS EPITHELIAL CELL,UR Rare /HPF (None Seen); WBC,URINE 51-80 /HPF (0-3)
[2022-06-11] MEDS ORDERED: FUROSEMIDE 40 MG/4 ML VIAL IV ONE (03:30)
[2022-06-11] MEDS ORDERED: FUROSEMIDE 40 MG/4 ML VIAL ONE (03:32)
[2022-06-11] MEDS ORDERED: NITROGLYCERIN 30 GM TUBE TP PRN (05:30)
[2022-06-11] MEDS ORDERED: CEFEPIME 1 GM in IV D5W 50 ML IV SCH (05:30)
[2022-06-11] MEDS ORDERED: CEFTRIAXONE 1GM BAG (ER ONLY) 1 GM/50 ML PIGGYBACK IV ONE (05:30)
[2022-06-11 06:10] LABS: BASOPHILS # (AUTO) 0.1 K/uL (0.0-0.2); BASOPHILS % (AUTO) 0.5 % (0.0-2.0); HEMATOCRIT 24 % (33-45); HEMOGLOBIN 7.8 g/dL (11.5-14.8); LYMPHOCYTES # (AUTO) 0.5 K/uL (0.8-4.8); LYMPHOCYTES % (AUTO) 4.8 % (20.0-44.0); MEAN CORPUSCULAR HGB CONC 33 g/dl (31.0-36.0); MEAN CORPUSCULAR VOLUME 89 fL (82-100); MONOCYTES # (AUTO) 0.1 K/uL (0.1-1.30); MONOCYTES % (AUTO) 0.9 % (2.0-12.0); NEUTROPHILS # (AUTO) 9.6 K/uL (1.8-8.9); NEUTROPHILS % (AUTO) 93.8 % (43.0-81.0); PLATELET COUNT (AUTO) 715 K/uL (150-450); WHITE BLOOD COUNT (AUTO) 10.2 K/uL (4.3-11.0)
[2022-06-11 06:23] LABS: ALBUMIN 1.8 g/dL (3.4-5.0); BILIRUBIN,TOTAL 0.8 mg/dL (0.2-1.0); CALCIUM, SERUM 9.1 mg/dL (8.5-10.1); CREATININE 1.2 mg/dL (0.6-1.3); MAGNESIUM 1.4 mg/dL (1.8-2.4); PHOSPHORUS 2.5 mg/dL (2.5-4.9); POTASSIUM 3.3 mmol/L (3.5-5.1); TOTAL PROTEIN, SERUM 6.7 g/dL (6.4-8.2)
[2022-06-11 06:32] LABS: THYROID STIMULATING HORMONE 0.208 uIU/mL (0.358-3.74)
[2022-06-11] MEDS ORDERED: ENOXAPARIN SODIUM 40 MG/0.4 ML DISP.SYRIN SQ SCH (06:47)
[2022-06-11] MEDS ORDERED: CEFTRIAXONE 1GM BAG (ER ONLY) 50 ML IV ONE (06:48)
[2022-06-11] MEDS ORDERED: VANCOMYCIN 1.25 GM in IV D5W 250 ML IV ONE (07:30)
[2022-06-11 08:05] VITALS: BP 116/68
[2022-06-11] MEDS ORDERED: FUROSEMIDE 40 MG/4 ML VIAL IV SCH (09:00)
[2022-06-11] MEDS ORDERED: CEFEPIME 2 GM in IV D5W 100 ML IV SCH (09:00)
[2022-06-11] MEDS: POTASSIUM CL. PREMIX PERIPHER. 50 ML IV SCH ×4 (09:00→17:38)
[2022-06-11] MEDS ORDERED: Z GUARD REMEDY 4 OZ OINT TP PRN (09:30)
[2022-06-11] MEDS ORDERED: HYDROGEL DRESSING 90 GM TUBE TP PRN (09:30)
[2022-06-11] MEDS: Magnesium 1GM/D5W 100ML PREMIX 100 ML IV SCH ×7 (10:00→22:53)
[2022-06-11 10:41] LABS: ABG BASE EXCESS -2.2 mmol/L; ABG OXYGEN SATURATION 99.1 % (92.0-98.5); ABG PCO2 24.1 mmHg (35.0-45.0); ABG PH 7.528 (7.350-7.450); ABG PO2 171.2 mmHg (75.0-100.0); AaDO2 122.2 mmHg; COHb 0.3 % (0.5-1.5); MetHb 0.3 % (0.0-1.5); O2Hb 98.5 % (94.0-97.0); SITE, ABG Right Radial; VENT MODE, BG Nasal Cannula
[2022-06-11] MEDS: ALBUTEROL FS 2.5 MG/0.5 ML VIAL.NEB NEB SCH ×3 (10:46→20:06)
[2022-06-11] MEDS: IPRATROPIUM NEB FS 0.5 MG/2.5 ML AMPUL.NEB NEB SCH ×3 (10:46→20:06)
[2022-06-11 12:00] VITALS: BP 107/61
[2022-06-11] MEDS: VANCOMYCIN 1 GM in IV D5W 250 ML IV SCH (12:35)
[2022-06-11] MEDS: HYDROGEL DRESSING 90 GM TUBE TP SCH (12:35)
[2022-06-11] MEDS: Z GUARD REMEDY 4 OZ OINT TP SCH (12:36)
[2022-06-11 13:23] LABS: BAND % (MANUAL) 10 % (0.0-5.0); BASOPHILS % (MANUAL) 0 % (0.0-2.0); EOSINOPHILS % (MANUAL) 0 % (0-4); LYMPHOCYTES % (MANUAL) 5 % (16-48); MONOCYTES % (MANUAL) 9 % (0-11.0); NEUTROPHILS % (MANUAL) 76 (42-76)
[2022-06-11] MEDS: methylPREDNISolone SOD SUCC 40 MG/ML VIAL IV SCH ×2 (13:48→17:33)
[2022-06-11] MEDS: ENOXAPARIN SODIUM 30 MG/0.3 ML DISP.SYRIN SQ SCH (13:48)
[2022-06-11] MEDS: IV 1/2NS 1000 ML 1,000 ML IV PRN (15:49)
[2022-06-11 16:00] VITALS: BP 103/73
[2022-06-11] MEDS ORDERED: ERGOCALCIFEROL (VITAMIN D 2) 50,000 UNIT CAPSULE PO SCH (16:00)
[2022-06-11 20:00] VITALS: BP 103/73
[2022-06-11] MEDS: CEFTRIAXONE 2 G in IV D5W 100 ML IV SCH (21:10)
[2022-06-12] VITALS: BP 121/54
[2022-06-12 04:00] VITALS: BP 139/85
[2022-06-12] MEDS: IV 1/2NS 1000 ML 1,000 ML IV PRN (06:40)
[2022-06-12] MEDS: ALBUTEROL FS 2.5 MG/0.5 ML VIAL.NEB NEB SCH ×4 (06:53→20:11)
[2022-06-12] MEDS: IPRATROPIUM NEB FS 0.5 MG/2.5 ML AMPUL.NEB NEB SCH ×4 (06:53→20:11)
[2022-06-12] MEDS: LEVOTHYROXINE SODIUM 75 MCG TABLET PO SCH (07:28)
[2022-06-12 08:00] VITALS: BP 119/67
[2022-06-12] MEDS: ESCITALOPRAM OXALATE (10 MG) 10 MG TABLET PO SCH (08:46)
[2022-06-12] MEDS: ASCORBIC ACID 500 MG TABLET PO SCH (08:46)
[2022-06-12] MEDS: methylPREDNISolone SOD SUCC 40 MG/ML VIAL IV SCH ×2 (08:46→16:44)
[2022-06-12] MEDS: ASPIRIN 81 MG TAB.CHEW PO SCH (08:46)
[2022-06-12] MEDS: LISINOPRIL (10MG) 10 MG TABLET PO SCH (08:47)
[2022-06-12] MEDS: PROSOURCE / PROSTAT (PYXIS) 30 ML UDC PO SCH (08:48)
[2022-06-12] MEDS: HYDROGEL DRESSING 90 GM TUBE TP SCH (08:48)
[2022-06-12] MEDS: Z GUARD REMEDY 4 OZ OINT TP SCH (08:49)
[2022-06-12] MEDS: ENOXAPARIN SODIUM 30 MG/0.3 ML DISP.SYRIN SQ SCH (09:00)
[2022-06-12] MEDS: MULTIVIT W/MINERALS 1 TAB TABLET PO SCH (09:05)
[2022-06-12] MEDS: FERROUS SULFATE (325 MG) 325 MG/TAB TABLET PO SCH (09:26)
[2022-06-12 12:00] VITALS: BP 141/108
[2022-06-12] MEDS ORDERED: LORAZEPAM 0.5 MG TABLET PO PRN (12:00)
[2022-06-12] MEDS: VANCOMYCIN 1 GM in IV D5W 250 ML IV SCH (12:23)
[2022-06-12 16:00] VITALS: BP 129/65
[2022-06-12 16:39] LABS: ALBUMIN 2.2 g/dL (3.4-5.0); BILIRUBIN,TOTAL 0.5 mg/dL (0.2-1.0); CALCIUM, SERUM 8.9 mg/dL (8.5-10.1); CREATININE 1.3 mg/dL (0.6-1.3); MAGNESIUM 2.7 mg/dL (1.8-2.4); PHOSPHORUS 3.2 mg/dL (2.5-4.9); POTASSIUM 3.2 mmol/L (3.5-5.1); TOTAL PROTEIN, SERUM 7.4 g/dL (6.4-8.2)
[2022-06-12 16:41] LABS: BASOPHILS # (AUTO) 0.1 K/uL (0.0-0.2); BASOPHILS % (AUTO) 0.3 % (0.0-2.0); HEMATOCRIT 26 % (33-45); HEMOGLOBIN 8.2 g/dL (11.5-14.8); LYMPHOCYTES # (AUTO) 1.6 K/uL (0.8-4.8); LYMPHOCYTES % (AUTO) 10.3 % (20.0-44.0); MEAN CORPUSCULAR HGB CONC 31 g/dl (31.0-36.0); MEAN CORPUSCULAR VOLUME 90 fL (82-100); MONOCYTES # (AUTO) 0.4 K/uL (0.1-1.30); MONOCYTES % (AUTO) 2.8 % (2.0-12.0); NEUTROPHILS # (AUTO) 13.6 K/uL (1.8-8.9); NEUTROPHILS % (AUTO) 86.6 % (43.0-81.0); RED BLOOD CELL COUNT(AUTO) 2.93 MIL/uL (4.0-5.2); WHITE BLOOD COUNT (AUTO) 15.7 K/uL (4.3-11.0)
[2022-06-12 17:05] LABS: PLATELET COUNT (AUTO) 906 K/uL (150-450)
[2022-06-12 20:00] VITALS: BP 129/49
[2022-06-12] MEDS: CEFTRIAXONE 2 G in IV D5W 100 ML IV SCH (20:33)
[2022-06-13] VITALS: BP 120/68
[2022-06-13] MEDS: IV 1/2NS 1000 ML 1,000 ML IV PRN (01:37)
[2022-06-13 04:00] VITALS: BP 117/60
[2022-06-13] MEDS: LEVOTHYROXINE SODIUM 75 MCG TABLET PO SCH (06:25)
[2022-06-13 07:22] LABS: BASOPHILS % (AUTO) 0.3 % (0.0-2.0); EOSINOPHILS % (AUTO) 0.3 % (0.0-6.0); HEMATOCRIT 26 % (33-45); HEMOGLOBIN 8.1 g/dL (11.5-14.8); MEAN CORPUSCULAR HGB CONC 32 g/dl (31.0-36.0); MEAN CORPUSCULAR VOLUME 92 fL (82-100); MONOCYTES # (AUTO) 0.2 K/uL (0.1-1.30); NEUTROPHILS # (AUTO) 8.9 K/uL (1.8-8.9); NEUTROPHILS % (AUTO) 87.4 % (43.0-81.0); PLATELET COUNT (AUTO) 724 K/uL (150-450); RED BLOOD CELL COUNT(AUTO) 2.78 MIL/uL (4.0-5.2); WHITE BLOOD COUNT (AUTO) 10.2 K/uL (4.3-11.0)
[2022-06-13 07:27] LABS: CALCIUM, SERUM 8.5 mg/dL (8.5-10.1); CREATININE 0.9 mg/dL (0.6-1.3); MAGNESIUM 2.5 mg/dL (1.8-2.4); PHOSPHORUS 3.8 mg/dL (2.5-4.9); POTASSIUM 3.7 mmol/L (3.5-5.1)
[2022-06-13] MEDS: ALBUTEROL FS 2.5 MG/0.5 ML VIAL.NEB NEB SCH ×4 (07:38→20:27)
[2022-06-13] MEDS: IPRATROPIUM NEB FS 0.5 MG/2.5 ML AMPUL.NEB NEB SCH ×4 (07:38→20:27)
[2022-06-13 08:00] VITALS: BP 115/69
[2022-06-13] MEDS: HYDROGEL DRESSING 90 GM TUBE TP SCH (08:01)
[2022-06-13] MEDS: Z GUARD REMEDY 4 OZ OINT TP SCH (08:01)
[2022-06-13] MEDS: MULTIVIT W/MINERALS 1 TAB TABLET PO SCH (08:12)
[2022-06-13] MEDS: FERROUS SULFATE (325 MG) 325 MG/TAB TABLET PO SCH (08:12)
[2022-06-13] MEDS: ASPIRIN 81 MG TAB.CHEW PO SCH (08:12)
[2022-06-13] MEDS: ESCITALOPRAM OXALATE (10 MG) 10 MG TABLET PO SCH (08:12)
[2022-06-13] MEDS: methylPREDNISolone SOD SUCC 40 MG/ML VIAL IV SCH ×2 (08:12→16:19)
[2022-06-13] MEDS: ASCORBIC ACID 500 MG TABLET PO SCH (08:12)
[2022-06-13] MEDS: PROSOURCE / PROSTAT (PYXIS) 30 ML UDC PO SCH (08:13)
[2022-06-13] MEDS: ENOXAPARIN SODIUM 30 MG/0.3 ML DISP.SYRIN SQ SCH (08:14)
[2022-06-13] MEDS: LISINOPRIL (10MG) 10 MG TABLET PO SCH (08:16)
[2022-06-13] MEDS: VANCOMYCIN 1 GM in IV D5W 250 ML IV SCH (11:18)
[2022-06-13 12:00] VITALS: BP 99/57
[2022-06-13] MEDS: ENSURE ENLIVE 237 ML LIQUID (VANILLA) PO SCH ×2 (12:00→16:16)
[2022-06-13 16:00] VITALS: BP 101/69
[2022-06-13 20:00] VITALS: BP 114/63
[2022-06-13] MEDS: CEFTRIAXONE 2 G in IV D5W 100 ML IV SCH (21:43)
[2022-06-13] MEDS: LORAZEPAM INJ 2 MG/ML VIAL IV PRN (22:31)
[2022-06-14] VITALS: BP 113/59
[2022-06-14 04:00] VITALS: BP 110/63
[2022-06-14 07:17] LABS: BASOPHILS # (AUTO) 0.1 K/uL (0.0-0.2); BASOPHILS % (AUTO) 0.4 % (0.0-2.0); EOSINOPHILS % (AUTO) 0.3 % (0.0-6.0); HEMATOCRIT 24 % (33-45); HEMOGLOBIN 7.3 g/dL (11.5-14.8); LYMPHOCYTES # (AUTO) 1.2 K/uL (0.8-4.8); MEAN CORPUSCULAR HGB CONC 31 g/dl (31.0-36.0); MEAN CORPUSCULAR VOLUME 92 fL (82-100); MONOCYTES # (AUTO) 2.1 K/uL (0.1-1.30); MONOCYTES % (AUTO) 14.2 % (2.0-12.0); NEUTROPHILS # (AUTO) 11.2 K/uL (1.8-8.9); NEUTROPHILS % (AUTO) 77.1 % (43.0-81.0); PLATELET COUNT (AUTO) 657 K/uL (150-450); RED BLOOD CELL COUNT(AUTO) 2.58 MIL/uL (4.0-5.2); WHITE BLOOD COUNT (AUTO) 14.5 K/uL (4.3-11.0)
[2022-06-14 07:19] LABS: CALCIUM, SERUM 8.5 mg/dL (8.5-10.1); CREATININE 1.1 mg/dL (0.6-1.3); MAGNESIUM 2.3 mg/dL (1.8-2.4); PHOSPHORUS 2.5 mg/dL (2.5-4.9); POTASSIUM 3.2 mmol/L (3.5-5.1)
[2022-06-14 08:00] VITALS: BP 117/59
[2022-06-14] MEDS: LEVOTHYROXINE SODIUM 75 MCG TABLET PO SCH (08:25)
[2022-06-14] MEDS: FERROUS SULFATE (325 MG) 325 MG/TAB TABLET PO SCH (08:25)
[2022-06-14] MEDS: MULTIVIT W/MINERALS 1 TAB TABLET PO SCH (08:25)
[2022-06-14] MEDS: ESCITALOPRAM OXALATE (10 MG) 10 MG TABLET PO SCH (08:25)
[2022-06-14] MEDS: ASPIRIN 81 MG TAB.CHEW PO SCH (08:25)
[2022-06-14] MEDS: ASCORBIC ACID 500 MG TABLET PO SCH (08:25)
[2022-06-14] MEDS: methylPREDNISolone SOD SUCC 40 MG/ML VIAL IV SCH ×2 (08:26→16:02)
[2022-06-14] MEDS: LISINOPRIL (10MG) 10 MG TABLET PO SCH (08:26)
[2022-06-14] MEDS: HYDROGEL DRESSING 90 GM TUBE TP SCH (08:30)
[2022-06-14] MEDS: ENOXAPARIN SODIUM 30 MG/0.3 ML DISP.SYRIN SQ SCH (08:30)
[2022-06-14] MEDS: PROSOURCE / PROSTAT (PYXIS) 30 ML UDC PO SCH (08:31)
[2022-06-14] MEDS: Z GUARD REMEDY 4 OZ OINT TP SCH (08:31)
[2022-06-14] MEDS: ENSURE ENLIVE 237 ML LIQUID (VANILLA) PO SCH ×3 (08:32→16:02)
[2022-06-14] MEDS: IPRATROPIUM NEB FS 0.5 MG/2.5 ML AMPUL.NEB NEB SCH ×4 (08:49→20:48)
[2022-06-14] MEDS: ALBUTEROL FS 2.5 MG/0.5 ML VIAL.NEB NEB SCH ×4 (08:49→20:48)
[2022-06-14] MEDS: VANCOMYCIN 1 GM in IV D5W 250 ML IV SCH ×2 (11:14→12:00)
[2022-06-14 12:00] VITALS: BP 122/50
[2022-06-14] MEDS ORDERED: POTASSIUM CHLORIDE 20 MEQ POWDER PACKET NG SCH (12:00)
[2022-06-14] MEDS: POTASSIUM CHLORIDE 20 MEQ TAB.PRT.SR PO SCH ×2 (12:41→13:41)
[2022-06-14] MEDS ORDERED: VANCOMYCIN HCL 0.75 GM in IV D5W 250 ML IV SCH (15:00)
[2022-06-14 16:00] VITALS: BP 116/62
[2022-06-14] MEDS: LORAZEPAM INJ 2 MG/ML VIAL IV PRN (17:15)
[2022-06-14 20:00] VITALS: BP 125/52
[2022-06-14] MEDS: CEFTRIAXONE 2 G in IV D5W 100 ML IV SCH (20:37)
[2022-06-15] VITALS: BP 112/52
[2022-06-15] MEDS: diphenhydrAMINE HCL 25 MG CAPSULE PO PRN (01:10)
[2022-06-15 04:00] VITALS: BP 116/59
[2022-06-15] MEDS: ALBUTEROL FS 2.5 MG/0.5 ML VIAL.NEB NEB SCH ×4 (07:35→20:57)
[2022-06-15] MEDS: IPRATROPIUM NEB FS 0.5 MG/2.5 ML AMPUL.NEB NEB SCH ×4 (07:35→20:57)
[2022-06-15] MEDS: ENSURE ENLIVE 237 ML LIQUID (VANILLA) PO SCH ×3 (07:58→16:06)
[2022-06-15 08:00] VITALS: BP 137/66
[2022-06-15] MEDS: HYDROGEL DRESSING 90 GM TUBE TP SCH (08:22)
[2022-06-15] MEDS: Z GUARD REMEDY 4 OZ OINT TP SCH (08:22)
[2022-06-15] MEDS: ASPIRIN 81 MG TAB.CHEW PO SCH (08:58)
[2022-06-15] MEDS: LEVOTHYROXINE SODIUM 75 MCG TABLET PO SCH (08:58)
[2022-06-15] MEDS: MEROPENEM 1 G in IV NS 0.9% 100 ML IV SCH ×2 (08:58→20:45)
[2022-06-15] MEDS: ASCORBIC ACID 500 MG TABLET PO SCH (08:59)
[2022-06-15] MEDS: LISINOPRIL (10MG) 10 MG TABLET PO SCH (08:59)
[2022-06-15] MEDS: MULTIVIT W/MINERALS 1 TAB TABLET PO SCH (08:59)
[2022-06-15] MEDS: ESCITALOPRAM OXALATE (10 MG) 10 MG TABLET PO SCH (08:59)
[2022-06-15] MEDS: FERROUS SULFATE (325 MG) 325 MG/TAB TABLET PO SCH (08:59)
[2022-06-15] MEDS: PROSOURCE / PROSTAT (PYXIS) 30 ML UDC PO SCH (09:03)
[2022-06-15] MEDS: ENOXAPARIN SODIUM 30 MG/0.3 ML DISP.SYRIN SQ SCH (09:04)
[2022-06-15 10:16] LABS: CREATININE 1.2 mg/dL (0.6-1.3); POTASSIUM 3.7 mmol/L (3.5-5.1)
[2022-06-15] MEDS: LORAZEPAM INJ 2 MG/ML VIAL IV PRN (10:53)
[2022-06-15 12:00] VITALS: BP 144/86
[2022-06-15 21:00] VITALS: BP 112/58
[2022-06-16 05:00] VITALS: BP 121/52
[2022-06-16] MEDS: ALBUTEROL FS 2.5 MG/0.5 ML VIAL.NEB NEB SCH ×4 (07:35→20:33)
[2022-06-16] MEDS: IPRATROPIUM NEB FS 0.5 MG/2.5 ML AMPUL.NEB NEB SCH ×4 (07:35→20:33)
[2022-06-16 07:44] LABS: BASOPHILS % (AUTO) 0.2 % (0.0-2.0); EOSINOPHILS % (AUTO) 1.7 % (0.0-6.0); HEMATOCRIT 25 % (33-45); HEMOGLOBIN 7.6 g/dL (11.5-14.8); LYMPHOCYTES % (AUTO) 10.6 % (20.0-44.0); MEAN CORPUSCULAR HGB CONC 31 g/dl (31.0-36.0); MEAN CORPUSCULAR VOLUME 93 fL (82-100); MONOCYTES % (AUTO) 15.9 % (2.0-12.0); NEUTROPHILS # (AUTO) 13.7 K/uL (1.8-8.9); NEUTROPHILS % (AUTO) 71.6 % (43.0-81.0); PLATELET COUNT (AUTO) 623 K/uL (150-450); RED BLOOD CELL COUNT(AUTO) 2.69 MIL/uL (4.0-5.2); WHITE BLOOD COUNT (AUTO) 19.2 K/uL (4.3-11.0)
[2022-06-16] MEDS: ENSURE ENLIVE 237 ML LIQUID (VANILLA) PO SCH ×4 (08:00→17:34)
[2022-06-16 08:05] LABS: CALCIUM, SERUM 8.9 mg/dL (8.5-10.1); POTASSIUM 3.9 mmol/L (3.5-5.1)
[2022-06-16] MEDS: PROSOURCE / PROSTAT (PYXIS) 30 ML UDC PO SCH (09:30)
[2022-06-16] MEDS: MEROPENEM 1 G in IV NS 0.9% 100 ML IV SCH ×2 (09:30→20:36)
[2022-06-16] MEDS: MULTIVIT W/MINERALS 1 TAB TABLET PO SCH (09:31)
[2022-06-16] MEDS: ASCORBIC ACID 500 MG TABLET PO SCH (09:31)
[2022-06-16] MEDS: ERGOCALCIFEROL (VITAMIN D 2) 50,000 UNIT CAPSULE PO SCH (09:31)
[2022-06-16] MEDS: FERROUS SULFATE (325 MG) 325 MG/TAB TABLET PO SCH (09:31)
[2022-06-16] MEDS: ASPIRIN 81 MG TAB.CHEW PO SCH (09:31)
[2022-06-16] MEDS: ESCITALOPRAM OXALATE (10 MG) 10 MG TABLET PO SCH (09:31)
[2022-06-16] MEDS: LEVOTHYROXINE SODIUM 75 MCG TABLET PO SCH (09:31)
[2022-06-16] MEDS: LISINOPRIL (10MG) 10 MG TABLET PO SCH (09:31)
[2022-06-16] MEDS: Z GUARD REMEDY 4 OZ OINT TP SCH (09:35)
[2022-06-16] MEDS: ENOXAPARIN SODIUM 40 MG/0.4 ML DISP.SYRIN SQ SCH (09:35)
[2022-06-16] MEDS: HYDROGEL DRESSING 90 GM TUBE TP SCH (09:36)
[2022-06-16] MEDS: IV D5W 1,000 ML IV SCH (09:43)
[2022-06-16 09:54] LABS: MAGNESIUM 1.9 mg/dL (1.8-2.4); PHOSPHORUS 1.5 mg/dL (2.5-4.9)
[2022-06-16 10:16] LABS: LYMPHOCYTES % (MANUAL) 15 % (16-48); MONOCYTES % (MANUAL) 12 % (0-11.0); NEUTROPHILS % (MANUAL) 73 (42-76)
[2022-06-16 13:00] VITALS: BP 133/55
[2022-06-16 16:00] VITALS: BP 137/62
[2022-06-16] MEDS ORDERED: K PHOS NEUTRAL 250 MG TABLET PO ONE (16:00)
[2022-06-16 20:00] VITALS: BP 130/75
[2022-06-16] MEDS: diphenhydrAMINE HCL 25 MG CAPSULE PO PRN (20:37)
[2022-06-16] MEDS ORDERED: ACETAMINOPHEN 325 MG TABLET PO PRN (21:30)
[2022-06-17] MEDS: IV D5W 1,000 ML IV SCH ×2 (01:13→12:09)
[2022-06-17 04:00] VITALS: BP 113/84
[2022-06-17] MEDS: ALBUTEROL FS 2.5 MG/0.5 ML VIAL.NEB NEB SCH ×4 (08:01→19:46)
[2022-06-17] MEDS: IPRATROPIUM NEB FS 0.5 MG/2.5 ML AMPUL.NEB NEB SCH ×4 (08:01→19:46)
[2022-06-17] MEDS: FERROUS SULFATE (325 MG) 325 MG/TAB TABLET PO SCH (08:21)
[2022-06-17] MEDS: ESCITALOPRAM OXALATE (10 MG) 10 MG TABLET PO SCH (08:21)
[2022-06-17] MEDS: ASCORBIC ACID 500 MG TABLET PO SCH (08:21)
[2022-06-17] MEDS: MULTIVIT W/MINERALS 1 TAB TABLET PO SCH (08:21)
[2022-06-17] MEDS: LEVOTHYROXINE SODIUM 75 MCG TABLET PO SCH (08:21)
[2022-06-17] MEDS: ASPIRIN 81 MG TAB.CHEW PO SCH (08:21)
[2022-06-17] MEDS: ENOXAPARIN SODIUM 40 MG/0.4 ML DISP.SYRIN SQ SCH (08:22)
[2022-06-17] MEDS: ENSURE ENLIVE 237 ML LIQUID (VANILLA) PO SCH ×3 (08:25→17:47)
[2022-06-17] MEDS: HYDROGEL DRESSING 90 GM TUBE TP SCH (08:26)
[2022-06-17] MEDS: Z GUARD REMEDY 4 OZ OINT TP SCH (08:26)
[2022-06-17] MEDS: PROSOURCE / PROSTAT (PYXIS) 30 ML UDC PO SCH (08:26)
[2022-06-17] MEDS: LISINOPRIL (10MG) 10 MG TABLET PO SCH (08:29)
[2022-06-17] MEDS: MEROPENEM 1 G in IV NS 0.9% 100 ML IV SCH ×2 (08:29→21:59)
[2022-06-17 10:46] LABS: BASOPHILS % (AUTO) 0.2 % (0.0-2.0); EOSINOPHILS % (AUTO) 0.8 % (0.0-6.0); HEMATOCRIT 26 % (33-45); HEMOGLOBIN 8.2 g/dL (11.5-14.8); LYMPHOCYTES # (AUTO) 1.4 K/uL (0.8-4.8); LYMPHOCYTES % (AUTO) 5.5 % (20.0-44.0); MEAN CORPUSCULAR HGB CONC 31 g/dl (31.0-36.0); MEAN CORPUSCULAR VOLUME 90 fL (82-100); MONOCYTES # (AUTO) 3.5 K/uL (0.1-1.30); MONOCYTES % (AUTO) 13.7 % (2.0-12.0); NEUTROPHILS # (AUTO) 20.4 K/uL (1.8-8.9); NEUTROPHILS % (AUTO) 79.8 % (43.0-81.0); PLATELET COUNT (AUTO) 539 K/uL (150-450); RED BLOOD CELL COUNT(AUTO) 2.94 MIL/uL (4.0-5.2); WHITE BLOOD COUNT (AUTO) 25.5 K/uL (4.3-11.0)
[2022-06-17 11:05] LABS: CALCIUM, SERUM 8.5 mg/dL (8.5-10.1); CREATININE 1.1 mg/dL (0.6-1.3); MAGNESIUM 1.6 mg/dL (1.8-2.4); PHOSPHORUS 1.1 mg/dL (2.5-4.9)
[2022-06-17 11:08] LABS: POTASSIUM 2.6 mmol/L (3.5-5.1)
[2022-06-17 12:00] VITALS: BP 110/52
[2022-06-17] MEDS ORDERED: POTASSIUM CHLORIDE 20 MEQ TAB.PRT.SR PO ONE (15:30)
[2022-06-17 20:00] VITALS: BP 133/71
[2022-06-18 00:23] LABS: BASOPHILS % (MANUAL) 0 % (0.0-2.0); EOSINOPHILS % (MANUAL) 1 % (0-4); LYMPHOCYTES % (MANUAL) 6 % (16-48); MONOCYTES % (MANUAL) 12 % (0-11.0); NEUTROPHILS % (MANUAL) 81 (42-76)
[2022-06-18] MEDS: IV D5W 1,000 ML IV SCH (01:00)
[2022-06-18 04:00] VITALS: BP 121/70
[2022-06-18] MEDS: ALBUTEROL FS 2.5 MG/0.5 ML VIAL.NEB NEB SCH ×4 (07:47→18:36)
[2022-06-18] MEDS: IPRATROPIUM NEB FS 0.5 MG/2.5 ML AMPUL.NEB NEB SCH ×4 (07:47→18:36)
[2022-06-18] MEDS: ASPIRIN 81 MG TAB.CHEW PO SCH (08:12)
[2022-06-18] MEDS: FERROUS SULFATE (325 MG) 325 MG/TAB TABLET PO SCH (08:12)
[2022-06-18] MEDS: LEVOTHYROXINE SODIUM 75 MCG TABLET PO SCH (08:13)
[2022-06-18] MEDS: ENSURE ENLIVE 237 ML LIQUID (VANILLA) PO SCH ×3 (08:13→17:10)
[2022-06-18] MEDS: ENOXAPARIN SODIUM 40 MG/0.4 ML DISP.SYRIN SQ SCH (08:15)
[2022-06-18] MEDS: HYDROGEL DRESSING 90 GM TUBE TP SCH (09:00)
[2022-06-18] MEDS: LISINOPRIL (10MG) 10 MG TABLET PO SCH (09:00)
[2022-06-18] MEDS: MULTIVIT W/MINERALS 1 TAB TABLET PO SCH (09:00)
[2022-06-18] MEDS: ASCORBIC ACID 500 MG TABLET PO SCH (09:00)
[2022-06-18] MEDS: Z GUARD REMEDY 4 OZ OINT TP SCH (09:00)
[2022-06-18] MEDS: ESCITALOPRAM OXALATE (10 MG) 10 MG TABLET PO SCH (09:00)
[2022-06-18] MEDS: MEROPENEM 1 G in IV NS 0.9% 100 ML IV SCH ×2 (09:20→21:25)
[2022-06-18] MEDS: PROSOURCE / PROSTAT (PYXIS) 30 ML UDC PO SCH (09:40)
[2022-06-18 12:00] VITALS: BP 118/76
[2022-06-18 12:12] LABS: BASOPHILS % (AUTO) 0.1 % (0.0-2.0); EOSINOPHILS % (AUTO) 0.6 % (0.0-6.0); HEMATOCRIT 25 % (33-45); HEMOGLOBIN 7.9 g/dL (11.5-14.8); LYMPHOCYTES # (AUTO) 1.3 K/uL (0.8-4.8); LYMPHOCYTES % (AUTO) 6.3 % (20.0-44.0); MEAN CORPUSCULAR HGB CONC 31 g/dl (31.0-36.0); MEAN CORPUSCULAR VOLUME 89 fL (82-100); MONOCYTES # (AUTO) 3.6 K/uL (0.1-1.30); MONOCYTES % (AUTO) 17.7 % (2.0-12.0); NEUTROPHILS # (AUTO) 15.4 K/uL (1.8-8.9); NEUTROPHILS % (AUTO) 75.3 % (43.0-81.0); PLATELET COUNT (AUTO) 439 K/uL (150-450); RED BLOOD CELL COUNT(AUTO) 2.85 MIL/uL (4.0-5.2); WHITE BLOOD COUNT (AUTO) 20.5 K/uL (4.3-11.0)
[2022-06-18 12:22] LABS: CALCIUM, SERUM 8.4 mg/dL (8.5-10.1); CREATININE 0.8 mg/dL (0.6-1.3); POTASSIUM 3.7 mmol/L (3.5-5.1)
[2022-06-18 19:09] LABS: BAND % (MANUAL) 3 % (0.0-5.0); EOSINOPHILS % (MANUAL) 2 % (0-4); LYMPHOCYTES % (MANUAL) 7 % (16-48); METAMYELOCYTES % 1 % (0-0); MONOCYTES % (MANUAL) 6 % (0-11.0); NEUTROPHILS % (MANUAL) 81 (42-76)
[2022-06-18 20:00] VITALS: BP 154/68
[2022-06-18] MEDS: IV NS 0.9% 1,000 ML IV PRN (21:42)
[2022-06-18] MEDS: ONDANSETRON HCL/PF 4 MG/2 ML VIAL IV PRN (21:45)
[2022-06-19 04:00] VITALS: BP 130/71
[2022-06-19 07:11] LABS: BASOPHILS # (AUTO) 0.1 K/uL (0.0-0.2); BASOPHILS % (AUTO) 0.2 % (0.0-2.0); EOSINOPHILS % (AUTO) 0.1 % (0.0-6.0); HEMATOCRIT 28 % (33-45); HEMOGLOBIN 8.8 g/dL (11.5-14.8); LYMPHOCYTES # (AUTO) 1.4 K/uL (0.8-4.8); LYMPHOCYTES % (AUTO) 6.3 % (20.0-44.0); MEAN CORPUSCULAR HGB CONC 32 g/dl (31.0-36.0); MEAN CORPUSCULAR VOLUME 88 fL (82-100); MONOCYTES # (AUTO) 2.6 K/uL (0.1-1.30); MONOCYTES % (AUTO) 11.9 % (2.0-12.0); NEUTROPHILS % (AUTO) 81.5 % (43.0-81.0); PLATELET COUNT (AUTO) 470 K/uL (150-450); RED BLOOD CELL COUNT(AUTO) 3.18 MIL/uL (4.0-5.2); WHITE BLOOD COUNT (AUTO) 22.1 K/uL (4.3-11.0)
[2022-06-19] MEDS: ALBUTEROL FS 2.5 MG/0.5 ML VIAL.NEB NEB SCH ×5 (07:31→19:52)
[2022-06-19] MEDS: IPRATROPIUM NEB FS 0.5 MG/2.5 ML AMPUL.NEB NEB SCH ×5 (07:31→19:52)
[2022-06-19 07:45] LABS: CALCIUM, SERUM 8.5 mg/dL (8.5-10.1); CREATININE 0.9 mg/dL (0.6-1.3); POTASSIUM 3.4 mmol/L (3.5-5.1)
[2022-06-19] MEDS: LEVOTHYROXINE SODIUM 75 MCG TABLET PO SCH (08:45)
[2022-06-19] MEDS: ESCITALOPRAM OXALATE (10 MG) 10 MG TABLET PO SCH (08:46)
[2022-06-19] MEDS: MULTIVIT W/MINERALS 1 TAB TABLET PO SCH (08:46)
[2022-06-19] MEDS: ASPIRIN 81 MG TAB.CHEW PO SCH (08:48)
[2022-06-19] MEDS: LISINOPRIL (10MG) 10 MG TABLET PO SCH (08:48)
[2022-06-19] MEDS: FERROUS SULFATE (325 MG) 325 MG/TAB TABLET PO SCH (08:48)
[2022-06-19] MEDS: ENOXAPARIN SODIUM 40 MG/0.4 ML DISP.SYRIN SQ SCH (08:50)
[2022-06-19] MEDS: ASCORBIC ACID 500 MG TABLET PO SCH (08:57)
[2022-06-19] MEDS: PROSOURCE / PROSTAT (PYXIS) 30 ML UDC PO SCH (08:59)
[2022-06-19] MEDS ORDERED: POTASSIUM CHLORIDE 20 MEQ TAB.PRT.SR PO ONE (09:00)
[2022-06-19] MEDS: ONDANSETRON HCL/PF 4 MG/2 ML VIAL IV PRN ×2 (09:05→13:09)
[2022-06-19] MEDS: Z GUARD REMEDY 4 OZ OINT TP SCH (09:15)
[2022-06-19] MEDS: ENSURE ENLIVE 237 ML LIQUID (VANILLA) PO SCH ×3 (09:15→17:52)
[2022-06-19] MEDS: HYDROGEL DRESSING 90 GM TUBE TP SCH (09:16)
[2022-06-19] MEDS: MEROPENEM 1 G in IV NS 0.9% 100 ML IV SCH ×2 (09:23→20:03)
[2022-06-19] MEDS: IV NS 0.9% 1,000 ML IV PRN (13:07)
[2022-06-19 16:00] VITALS: BP 129/68
[2022-06-19] MEDS: LORAZEPAM INJ 2 MG/ML VIAL IV PRN (18:27)
[2022-06-19 20:34] LABS: BAND % (MANUAL) 1 % (0.0-5.0); LYMPHOCYTES % (MANUAL) 9 % (16-48); MONOCYTES % (MANUAL) 13 % (0-11.0); NEUTROPHILS % (MANUAL) 77 (42-76)
[2022-06-20] VITALS (11 sets, daily range): BP systolic 108–156; BP diastolic 60–86
[2022-06-20] MEDS: IV NS 0.9% 1,000 ML IV PRN (03:15)
[2022-06-20 07:02] LABS: BASOPHILS % (AUTO) 0.4 % (0.0-2.0); EOSINOPHILS % (AUTO) 0.5 % (0.0-6.0); HEMATOCRIT 22 % (33-45); LYMPHOCYTES # (AUTO) 1.6 K/uL (0.8-4.8); LYMPHOCYTES % (AUTO) 14.2 % (20.0-44.0); MEAN CORPUSCULAR HGB CONC 31 g/dl (31.0-36.0); MEAN CORPUSCULAR VOLUME 90 fL (82-100); MONOCYTES # (AUTO) 2.1 K/uL (0.1-1.30); NEUTROPHILS # (AUTO) 7.4 K/uL (1.8-8.9); NEUTROPHILS % (AUTO) 65.9 % (43.0-81.0); PLATELET COUNT (AUTO) 351 K/uL (150-450); RED BLOOD CELL COUNT(AUTO) 2.43 MIL/uL (4.0-5.2); WHITE BLOOD COUNT (AUTO) 11.2 K/uL (4.3-11.0)
[2022-06-20 07:12] LABS: HEMOGLOBIN 6.8 g/dL (11.5-14.8)
[2022-06-20 07:21] LABS: CREATININE 0.8 mg/dL (0.6-1.3)
[2022-06-20] MEDS: ALBUTEROL FS 2.5 MG/0.5 ML VIAL.NEB NEB SCH ×4 (07:35→19:46)
[2022-06-20] MEDS: IPRATROPIUM NEB FS 0.5 MG/2.5 ML AMPUL.NEB NEB SCH ×4 (07:35→19:46)
[2022-06-20] MEDS: LEVOTHYROXINE SODIUM 75 MCG TABLET PO SCH (07:54)
[2022-06-20] MEDS: MULTIVIT W/MINERALS 1 TAB TABLET PO SCH (08:19)
[2022-06-20] MEDS: ASPIRIN 81 MG TAB.CHEW PO SCH (08:19)
[2022-06-20] MEDS: POTASSIUM CHLORIDE 20 MEQ POWDER PACKET GT SCH (08:19)
[2022-06-20] MEDS: FERROUS SULFATE (325 MG) 325 MG/TAB TABLET PO SCH (08:19)
[2022-06-20] MEDS: ASCORBIC ACID 500 MG TABLET PO SCH (08:20)
[2022-06-20] MEDS: ESCITALOPRAM OXALATE (10 MG) 10 MG TABLET PO SCH (08:20)
[2022-06-20] MEDS: LISINOPRIL (10MG) 10 MG TABLET PO SCH (08:20)
[2022-06-20] MEDS: PROSOURCE / PROSTAT (PYXIS) 30 ML UDC PO SCH (08:23)
[2022-06-20] MEDS: MEROPENEM 1 G in IV NS 0.9% 100 ML IV SCH ×2 (08:26→21:32)
[2022-06-20] MEDS: POTASSIUM CL. PREMIX PERIPHER. 50 ML IV SCH ×4 (08:26→11:20)
[2022-06-20] MEDS: ENOXAPARIN SODIUM 40 MG/0.4 ML DISP.SYRIN SQ SCH (09:00)
[2022-06-20] MEDS: ENSURE ENLIVE 237 ML LIQUID (VANILLA) PO SCH ×3 (09:07→16:23)
[2022-06-20] MEDS: HYDROGEL DRESSING 90 GM TUBE TP SCH (09:09)
[2022-06-20] MEDS: Z GUARD REMEDY 4 OZ OINT TP SCH (09:09)
[2022-06-20 11:06] LABS: HEMATOCRIT 23 % (33-45); HEMOGLOBIN 7.2 g/dL (11.5-14.8); MEAN CORPUSCULAR HGB CONC 32 g/dl (31.0-36.0); MEAN CORPUSCULAR VOLUME 89 fL (82-100); PLATELET COUNT (AUTO) 392 K/uL (150-450); RED BLOOD CELL COUNT(AUTO) 2.54 MIL/uL (4.0-5.2); WHITE BLOOD COUNT (AUTO) 12.6 K/uL (4.3-11.0)
[2022-06-20] MEDS ORDERED: IV D5/0.45 NACL 1,000 ML IV SCH (13:00)
[2022-06-20] MEDS ORDERED: IV D5/0.45 NACL 1,000 ML IV ONE (13:30)
[2022-06-20 13:34] LABS: BAND % (MANUAL) 3 % (0.0-5.0); BASOPHILS % (MANUAL) 0 % (0.0-2.0); EOSINOPHILS % (MANUAL) 0 % (0-4); LYMPHOCYTES % (MANUAL) 13 % (16-48); MONOCYTES % (MANUAL) 15 % (0-11.0); NEUTROPHILS % (MANUAL) 69 (42-76)
[2022-06-20] MEDS: LORAZEPAM INJ 2 MG/ML VIAL IV PRN (18:02)
[2022-06-21 04:00] VITALS: BP 109/80
[2022-06-21 06:23] LABS: BASOPHILS # (AUTO) 0.2 K/uL (0.0-0.2); BASOPHILS % (AUTO) 1.3 % (0.0-2.0); EOSINOPHILS % (AUTO) 1.2 % (0.0-6.0); HEMATOCRIT 25 % (33-45); HEMOGLOBIN 8.2 g/dL (11.5-14.8); LYMPHOCYTES # (AUTO) 1.1 K/uL (0.8-4.8); MEAN CORPUSCULAR HGB CONC 33 g/dl (31.0-36.0); MEAN CORPUSCULAR VOLUME 86 fL (82-100); MONOCYTES # (AUTO) 2.1 K/uL (0.1-1.30); MONOCYTES % (AUTO) 15.9 % (2.0-12.0); NEUTROPHILS # (AUTO) 9.9 K/uL (1.8-8.9); NEUTROPHILS % (AUTO) 73.6 % (43.0-81.0); PLATELET COUNT (AUTO) 339 K/uL (150-450); RED BLOOD CELL COUNT(AUTO) 2.91 MIL/uL (4.0-5.2); WHITE BLOOD COUNT (AUTO) 13.5 K/uL (4.3-11.0)
[2022-06-21 06:26] LABS: CALCIUM, SERUM 7.6 mg/dL (8.5-10.1); CREATININE 0.7 mg/dL (0.6-1.3)
[2022-06-21 06:30] LABS: POTASSIUM 2.7 mmol/L (3.5-5.1)
[2022-06-21] MEDS: ALBUTEROL FS 2.5 MG/0.5 ML VIAL.NEB NEB SCH ×4 (07:35→19:34)
[2022-06-21] MEDS: IPRATROPIUM NEB FS 0.5 MG/2.5 ML AMPUL.NEB NEB SCH ×4 (07:35→19:34)
[2022-06-21] MEDS: IV D5/ 0.9% NACL 1,000 ML IV SCH ×2 (07:54→21:21)
[2022-06-21 08:00] VITALS: BP 111/75
[2022-06-21] MEDS: ENSURE ENLIVE 237 ML LIQUID (VANILLA) PO SCH ×3 (08:00→17:00)
[2022-06-21] MEDS: POTASSIUM CHLORIDE 20 MEQ POWDER PACKET GT SCH (08:41)
[2022-06-21] MEDS: ESCITALOPRAM OXALATE (10 MG) 10 MG TABLET PO SCH (08:41)
[2022-06-21] MEDS: FERROUS SULFATE (325 MG) 325 MG/TAB TABLET PO SCH (08:41)
[2022-06-21] MEDS: LISINOPRIL (10MG) 10 MG TABLET PO SCH (08:41)
[2022-06-21] MEDS: ASCORBIC ACID 500 MG TABLET PO SCH (08:42)
[2022-06-21] MEDS: ASPIRIN 81 MG TAB.CHEW PO SCH (08:42)
[2022-06-21] MEDS: MULTIVIT W/MINERALS 1 TAB TABLET PO SCH (08:42)
[2022-06-21] MEDS: LEVOTHYROXINE SODIUM 75 MCG TABLET PO SCH (08:43)
[2022-06-21] MEDS: PROSOURCE / PROSTAT (PYXIS) 30 ML UDC PO SCH (09:00)
[2022-06-21] MEDS: Z GUARD REMEDY 4 OZ OINT TP SCH (09:06)
[2022-06-21] MEDS: HYDROGEL DRESSING 90 GM TUBE TP SCH (09:06)
[2022-06-21] MEDS: POTASSIUM CL. PREMIX PERIPHER. 50 ML IV SCH ×4 (09:38→15:04)
[2022-06-21] MEDS: MEROPENEM 1 G in IV NS 0.9% 100 ML IV SCH ×2 (09:39→20:07)
[2022-06-21 16:00] VITALS: BP 121/67
[2022-06-22] VITALS: BP 159/72
[2022-06-22 06:42] LABS: BASOPHILS # (AUTO) 0.1 K/uL (0.0-0.2); BASOPHILS % (AUTO) 0.5 % (0.0-2.0); EOSINOPHILS % (AUTO) 0.8 % (0.0-6.0); HEMATOCRIT 31 % (33-45); HEMOGLOBIN 9.9 g/dL (11.5-14.8); LYMPHOCYTES # (AUTO) 1.6 K/uL (0.8-4.8); LYMPHOCYTES % (AUTO) 9.9 % (20.0-44.0); MEAN CORPUSCULAR HGB CONC 32 g/dl (31.0-36.0); MEAN CORPUSCULAR VOLUME 88 fL (82-100); MONOCYTES # (AUTO) 2.7 K/uL (0.1-1.30); MONOCYTES % (AUTO) 16.4 % (2.0-12.0); NEUTROPHILS % (AUTO) 72.4 % (43.0-81.0); PLATELET COUNT (AUTO) 345 K/uL (150-450); RED BLOOD CELL COUNT(AUTO) 3.53 MIL/uL (4.0-5.2); WHITE BLOOD COUNT (AUTO) 16.6 K/uL (4.3-11.0)
[2022-06-22 06:51] LABS: CALCIUM, SERUM 7.9 mg/dL (8.5-10.1); CARBON DIOXIDE 21 mmol/L (21-32); CHLORIDE 104 mmol/L (98-107); CREATININE 0.7 mg/dL (0.6-1.3); GLUCOSE 102 mg/dL (74-106); POTASSIUM 3.1 mmol/L (3.5-5.1); SODIUM SERUM 133 mmol/L (136-145); UREA NITROGEN, BLOOD 6 mg/dL (7-18)
[2022-06-22 08:00] VITALS: BP 141/56
[2022-06-22] MEDS: IPRATROPIUM NEB FS 0.5 MG/2.5 ML AMPUL.NEB NEB SCH ×4 (08:09→19:35)
[2022-06-22] MEDS: ALBUTEROL FS 2.5 MG/0.5 ML VIAL.NEB NEB SCH ×4 (08:09→19:35)
[2022-06-22] MEDS: MEROPENEM 1 G in IV NS 0.9% 100 ML IV SCH (08:21)
[2022-06-22] MEDS: MULTIVIT W/MINERALS 1 TAB TABLET PO SCH (08:22)
[2022-06-22] MEDS: FERROUS SULFATE (325 MG) 325 MG/TAB TABLET PO SCH (08:22)
[2022-06-22] MEDS: LISINOPRIL (10MG) 10 MG TABLET PO SCH (08:22)
[2022-06-22] MEDS: ESCITALOPRAM OXALATE (10 MG) 10 MG TABLET PO SCH (08:22)
[2022-06-22] MEDS: ASPIRIN 81 MG TAB.CHEW PO SCH (08:22)
[2022-06-22] MEDS: LEVOTHYROXINE SODIUM 75 MCG TABLET PO SCH (08:22)
[2022-06-22] MEDS: ASCORBIC ACID 500 MG TABLET PO SCH (08:22)
[2022-06-22] MEDS: POTASSIUM CHLORIDE 20 MEQ TAB.PRT.SR PO SCH (08:22)
[2022-06-22] MEDS: ENSURE ENLIVE 237 ML LIQUID (VANILLA) PO SCH ×3 (08:23→16:10)
[2022-06-22] MEDS: PROSOURCE / PROSTAT (PYXIS) 30 ML UDC PO SCH (08:59)
[2022-06-22] MEDS: HYDROGEL DRESSING 90 GM TUBE TP SCH (09:00)
[2022-06-22] MEDS: Z GUARD REMEDY 4 OZ OINT TP SCH (09:00)
[2022-06-22 09:53] LABS: BAND % (MANUAL) 3 % (0.0-5.0); EOSINOPHILS % (MANUAL) 1 % (0-4); LYMPHOCYTES % (MANUAL) 15 % (16-48); MONOCYTES % (MANUAL) 12 % (0-11.0); NEUTROPHILS % (MANUAL) 69 (42-76)
[2022-06-22] MEDS: IV D5/ 0.9% NACL 1,000 ML IV SCH (10:55)
[2022-06-22 16:00] VITALS: BP 114/46
[2022-06-22 20:00] VITALS: BP 153/70
[2022-06-23] MEDS: IV D5/ 0.9% NACL 1,000 ML IV SCH (00:03)
[2022-06-23 05:00] VITALS: BP 137/71
[2022-06-23 07:07] LABS: BASOPHILS # (AUTO) 0.1 K/uL (0.0-0.2); BASOPHILS % (AUTO) 0.5 % (0.0-2.0); EOSINOPHILS % (AUTO) 0.7 % (0.0-6.0); HEMATOCRIT 30 % (33-45); HEMOGLOBIN 9.9 g/dL (11.5-14.8); LYMPHOCYTES # (AUTO) 1.5 K/uL (0.8-4.8); LYMPHOCYTES % (AUTO) 9.4 % (20.0-44.0); MEAN CORPUSCULAR HGB CONC 33 g/dl (31.0-36.0); MEAN CORPUSCULAR VOLUME 86 fL (82-100); MONOCYTES # (AUTO) 2.6 K/uL (0.1-1.30); MONOCYTES % (AUTO) 15.8 % (2.0-12.0); NEUTROPHILS % (AUTO) 73.6 % (43.0-81.0); PLATELET COUNT (AUTO) 345 K/uL (150-450); RED BLOOD CELL COUNT(AUTO) 3.47 MIL/uL (4.0-5.2); WHITE BLOOD COUNT (AUTO) 16.3 K/uL (4.3-11.0)
[2022-06-23 07:34] LABS: CALCIUM, SERUM 7.5 mg/dL (8.5-10.1); CARBON DIOXIDE 21 mmol/L (21-32); CHLORIDE 104 mmol/L (98-107); CREATININE 0.6 mg/dL (0.6-1.3); GLUCOSE 128 mg/dL (74-106); MAGNESIUM 1.4 mg/dL (1.8-2.4); PHOSPHORUS 1.6 mg/dL (2.5-4.9); UREA NITROGEN, BLOOD 7 mg/dL (7-18)
[2022-06-23 07:45] LABS: SODIUM SERUM 133 mmol/L (136-145)
[2022-06-23 07:50] LABS: POTASSIUM 2.4 mmol/L (3.5-5.1)
[2022-06-23 08:00] VITALS: BP 124/79
[2022-06-23] MEDS: ENSURE ENLIVE 237 ML LIQUID (VANILLA) PO SCH ×3 (08:00→16:30)
[2022-06-23] MEDS: ALBUTEROL FS 2.5 MG/0.5 ML VIAL.NEB NEB SCH ×4 (08:16→19:43)
[2022-06-23] MEDS: IPRATROPIUM NEB FS 0.5 MG/2.5 ML AMPUL.NEB NEB SCH ×4 (08:16→19:43)
[2022-06-23] MEDS: LEVOTHYROXINE SODIUM 75 MCG TABLET PO SCH (08:19)
[2022-06-23] MEDS: ERGOCALCIFEROL (VITAMIN D 2) 50,000 UNIT CAPSULE PO SCH (09:00)
[2022-06-23] MEDS: HYDROGEL DRESSING 90 GM TUBE TP SCH (09:13)
[2022-06-23] MEDS: Z GUARD REMEDY 4 OZ OINT TP SCH (09:13)
[2022-06-23] MEDS: ASPIRIN 81 MG TAB.CHEW PO SCH (09:20)
[2022-06-23] MEDS: POTASSIUM CHLORIDE 20 MEQ TAB.PRT.SR PO SCH (09:20)
[2022-06-23] MEDS: ESCITALOPRAM OXALATE (10 MG) 10 MG TABLET PO SCH (09:20)
[2022-06-23] MEDS: ASCORBIC ACID 500 MG TABLET PO SCH (09:20)
[2022-06-23] MEDS: MULTIVIT W/MINERALS 1 TAB TABLET PO SCH (09:20)
[2022-06-23] MEDS: FERROUS SULFATE (325 MG) 325 MG/TAB TABLET PO SCH (09:20)
[2022-06-23] MEDS: PROSOURCE / PROSTAT (PYXIS) 30 ML UDC PO SCH (09:21)
[2022-06-23] MEDS: LISINOPRIL (10MG) 10 MG TABLET PO SCH (09:21)
[2022-06-23] MEDS: Magnesium 1GM/D5W 100ML PREMIX 100 ML IV SCH ×4 (10:23→15:07)
[2022-06-23] MEDS: POTASSIUM CHLORIDE 10 MEQ TABLET.SA PO SCH ×3 (10:23→12:54)
[2022-06-23] MEDS: POTASSIUM CL. PREMIX PERIPHER. 50 ML IV SCH ×6 (10:23→17:17)
[2022-06-23] MEDS ORDERED: K PHOS NEUTRAL 250 MG TABLET PO ONE (15:30)
[2022-06-23 16:00] VITALS: BP 113/55
[2022-06-23] MEDS ORDERED: POTASSIUM CHLORIDE 10 MEQ/50 ML PREMIXED IVPB FOR PERIPHERAL LINE IV ONE (16:00)
[2022-06-23 16:57] LABS: MAGNESIUM 2.7 mg/dL (1.8-2.4); POTASSIUM 3.5 mmol/L (3.5-5.1)
[2022-06-23 20:20] LABS: BAND % (MANUAL) 2 % (0.0-5.0); LYMPHOCYTES % (MANUAL) 11 % (16-48); MONOCYTES % (MANUAL) 12 % (0-11.0); NEUTROPHILS % (MANUAL) 75 (42-76)
[2022-06-24] VITALS: BP 134/64
[2022-06-24 07:00] LABS: BASOPHILS # (AUTO) 0.1 K/uL (0.0-0.2); BASOPHILS % (AUTO) 0.5 % (0.0-2.0); EOSINOPHILS % (AUTO) 0.7 % (0.0-6.0); HEMATOCRIT 26 % (33-45); HEMOGLOBIN 8.6 g/dL (11.5-14.8); LYMPHOCYTES # (AUTO) 1.8 K/uL (0.8-4.8); LYMPHOCYTES % (AUTO) 11.9 % (20.0-44.0); MEAN CORPUSCULAR HGB CONC 33 g/dl (31.0-36.0); MEAN CORPUSCULAR VOLUME 87 fL (82-100); MONOCYTES # (AUTO) 2.4 K/uL (0.1-1.30); MONOCYTES % (AUTO) 15.5 % (2.0-12.0); NEUTROPHILS # (AUTO) 10.9 K/uL (1.8-8.9); NEUTROPHILS % (AUTO) 71.4 % (43.0-81.0); PLATELET COUNT (AUTO) 316 K/uL (150-450); RED BLOOD CELL COUNT(AUTO) 2.96 MIL/uL (4.0-5.2); WHITE BLOOD COUNT (AUTO) 15.3 K/uL (4.3-11.0)
[2022-06-24] MEDS: IPRATROPIUM NEB FS 0.5 MG/2.5 ML AMPUL.NEB NEB SCH ×3 (07:08→13:41)
[2022-06-24] MEDS: ALBUTEROL FS 2.5 MG/0.5 ML VIAL.NEB NEB SCH ×3 (07:08→13:41)
[2022-06-24 07:19] LABS: CALCIUM, SERUM 7.6 mg/dL (8.5-10.1); CARBON DIOXIDE 18 mmol/L (21-32); CHLORIDE 106 mmol/L (98-107); CREATININE 0.6 mg/dL (0.6-1.3); GLUCOSE 104 mg/dL (74-106); MAGNESIUM 2.3 mg/dL (1.8-2.4); PHOSPHORUS 2.1 mg/dL (2.5-4.9); POTASSIUM 4.1 mmol/L (3.5-5.1); SODIUM SERUM 132 mmol/L (136-145); UREA NITROGEN, BLOOD 9 mg/dL (7-18)
[2022-06-24] MEDS: LEVOTHYROXINE SODIUM 75 MCG TABLET PO SCH (07:32)
[2022-06-24] MEDS: ENSURE ENLIVE 237 ML LIQUID (VANILLA) PO SCH ×2 (07:34→12:16)
[2022-06-24 08:00] VITALS: BP 140/60
[2022-06-24] MEDS: ASCORBIC ACID 500 MG TABLET PO SCH (09:45)
[2022-06-24 09:46] VITALS: BP 140/60
[2022-06-24] MEDS: LISINOPRIL (10MG) 10 MG TABLET PO SCH (09:46)
[2022-06-24] MEDS: ASPIRIN 81 MG TAB.CHEW PO SCH (09:46)
[2022-06-24] MEDS: PROSOURCE / PROSTAT (PYXIS) 30 ML UDC PO SCH (09:46)
[2022-06-24] MEDS: FERROUS SULFATE (325 MG) 325 MG/TAB TABLET PO SCH (09:46)
[2022-06-24] MEDS: POTASSIUM CHLORIDE 20 MEQ TAB.PRT.SR PO SCH (09:46)
[2022-06-24] MEDS: ESCITALOPRAM OXALATE (10 MG) 10 MG TABLET PO SCH (09:46)
[2022-06-24] MEDS: MULTIVIT W/MINERALS 1 TAB TABLET PO SCH (09:46)
[2022-06-24] MEDS: HYDROGEL DRESSING 90 GM TUBE TP SCH (09:47)
[2022-06-24] MEDS: Z GUARD REMEDY 4 OZ OINT TP SCH (09:47)
[2022-06-24] MEDS ORDERED: K PHOS NEUTRAL 250 MG TABLET PO ONE (15:30)
[2022-06-24 15:34] LABS: EOSINOPHILS % (MANUAL) 2 % (0-4); LYMPHOCYTES % (MANUAL) 13 % (16-48); MONOCYTES % (MANUAL) 14 % (0-11.0); NEUTROPHILS % (MANUAL) 71 (42-76)
== END 2022-06-24 15:46 | DRG 871 ==
LOC: ER 00:53 → TELE1 06:39 → MEDSG1 06-15 13:18
PROVIDERS: ADMIT Nurse Practitioner Family; ATTEND Nurse Practitioner Family
PROC: 05HB33Z Insertion of Infusion Device into Right Basilic Vein, Percutaneous Approach (ICD-10-PCS; 2022-06-12)
PROC: 05H933Z Insertion of Infusion Device into Right Brachial Vein, Percutaneous Approach (ICD-10-PCS; 2022-06-12)
PROC: 30233N1 Transfusion of Nonautologous Red Blood Cells into Peripheral Vein, Percutaneous Approach (ICD-10-PCS; principal; 2022-06-20)
PROC: 05HA33Z Insertion of Infusion Device into Left Brachial Vein, Percutaneous Approach (ICD-10-PCS; 2022-06-23)
DX: A41.9 Sepsis, unspecified organism (principal); G92.8 Other toxic encephalopathy; J96.01 Acute respiratory failure with hypoxia; J69.0 Pneumonitis due to inhalation of food and vomit; N39.0 Urinary tract infection, site not specified; J44.1 Chronic obstructive pulmonary disease with (acute) exacerbation; I13.0 Hypertensive heart and chronic kidney disease with heart failure and stage 1 through stage 4 chronic kidney disease, or unspecified chronic kidney disease; E87.1 Hypo-osmolality and hyponatremia; E87.4 Mixed disorder of acid-base balance; E44.0 Moderate protein-calorie malnutrition; F03.94 Unspecified dementia, unspecified severity, with anxiety; F03.918 Unspecified dementia, unspecified severity, with other behavioral disturbance; Z16.12 Extended spectrum beta lactamase (ESBL) resistance; Z20.822 Contact with and (suspected) exposure to COVID-19; Z95.0 Presence of cardiac pacemaker; Z87.19 Personal history of other diseases of the digestive system; M19.90 Unspecified osteoarthritis, unspecified site; Z88.2 Allergy status to sulfonamides; Z79.82 Long term (current) use of aspirin; Z79.899 Other long term (current) drug therapy; N18.9 Chronic kidney disease, unspecified; R13.10 Dysphagia, unspecified; F09 Unspecified mental disorder due to known physiological condition; E03.9 Hypothyroidism, unspecified; B96.89 Other specified bacterial agents as the cause of diseases classified elsewhere; D64.9 Anemia, unspecified; D69.6 Thrombocytopenia, unspecified; E87.6 Hypokalemia; E88.09 Other disorders of plasma-protein metabolism, not elsewhere classified; E86.0 Dehydration; I70.0 Atherosclerosis of aorta; I48.91 Unspecified atrial fibrillation; F32.A Depression, unspecified; E83.42 Hypomagnesemia; E83.39 Other disorders of phosphorus metabolism; Z87.440 Personal history of urinary (tract) infections; Z87.891 Personal history of nicotine dependence; B96.20 Unspecified Escherichia coli [E. coli] as the cause of diseases classified elsewhere
CPT/HCPCS: 36410; 36415; 36600; 70450-TC; 71045-TC; 80048-TC; 80053-TC; 80076-TC; 80202-TC; 81001; 82607-TC; 82728-TC; 82803-TC; 83540-TC; 83605-TC; 83735-TC; 83880; 84100-TC; 84132-TC; 84295-TC; 84443-TC; 84484-TC; 85025-TC; 85027-TC; 85730-TC; 86803; 86850-TC; 87040-TC; 87081-TC; 87086-TC; 87806; 92526; 92611-TC; 93307-TC; 94799-TC; 97110-TC; 97112-TC; 97530-TC; A4223; A6248; C9803; G0378; J0692; J0696; J1650; J1940; J2060; J2185; J2405; J2920; J2930; J3370; J3475; J3480; J3490; J7030; J7042; J7050; J7060; J7070; P9016; Q0163